=== PATIENT | female | born 1955 | race Caucasian/White ===

== ENCOUNTER → 2016-09-16 | Outpatient (CLI) | payer MEDICARE ==
[~2016-09-16] MED LIST: CYAN10002 IM; DRON400T PO; LISI20TA3 PO; OMEP40CA PO; PRVHFAIN INH; SPACMIS19; VENL-271 PO; [UNRECOGNIZED DRUG - CODE] PO
[2016-09-16 16:38] LABS: BASO % 0.3 %; BASO ABS # 0.03 K/uL (0-0.2); COMPLETE YES; EOS % 0.3 %; HEMATOCRIT 42.6 % (37-47); IG% 0.3 %; LYMPH ABS # 2.26 K/uL (1.2-3.4); MEAN CELL VOLUME 89.3 fL (80-100); MEAN CORPUSCULAR HEMOGLOBIN 29.4 pg (25-34); MEAN CORPUSCULAR HGB CONC 32.9 g/dl (32-36); MONO % 7.4 %; NEUT % 68.7 %; PLATELET COUNT 361 K/uL (130-400); RED BLOOD COUNT 4.77 M/uL (4.2-5.4); WHITE BLOOD COUNT 9.82 K/uL (4.8-10.8)
[2016-09-16 16:50] LABS: URINE APPEARANCE CLEAR (CLEAR); URINE BILIRUBIN NEG (NEG); URINE COLOR YELLOW; URINE NITRITE NEG (NEG); URINE PH 5.5 (4.5-7.5); URINE SPECIFIC GRAVITY 1.009 (1.000-1.030); UROBILINOGEN NEG (NEG); ZZUR CULT IF INDIC CLEAN CATCH NO
[2016-09-16 16:52] LABS: MANUAL MICROSCOPIC REQUIRED? NO; REVIEW REQ? NO
[2016-09-16 17:10] LABS: URINE PROTIEN/CREAT RATIO 7.3 (0-0.2); URINE TOTAL PROTEIN 174.2 mg/dl (0-11.9)
[2016-09-16 17:30] LABS: BLOOD UREA NITROGEN 21 mg/dl (7-18); BUN/CREATININE RATIO 19.2 (10-20); CALCIUM 8.5 mg/dl (8.5-10.1); CARBON DIOXIDE 25 mmol/L (21-32); CHLORIDE 109 mmol/L (98-107); GLUCOSE 80 mg/dl (70-99); MAGNESIUM 2.2 mg/dl (1.8-2.4); POTASSIUM 4.4 mmol/L (3.5-5.1); SODIUM 142 mmol/L (136-145)
[2016-09-16 17:35] LABS: FERRITIN 13.5 ng/ml (8.0-388.0); PHOSPHORUS 3.8 mg/dl (2.5-4.9); TOTAL IRON BINDING CAPACITY 334 mcg/dl (250-450)
--- NOTE | 2016-09-20 14:03 | CODING QUERY MEDICAL NECESSITY ---
SUPPORTING DIAGNOSIS NEEDED Dr. Bonilla, A supporting diagnosis is required for the test/procedure performed on this patient in order for us to be reimbursed by the patient's insurance. Please provide a supporting diagnosis for the following test/procedure listed below next to the test name along with your signature. *If there is no additional diagnosis for this patient that would support the following test/procedure please document that below next to the test/procedure. Test(s)/Procedure(s) that require a supporting diagnosis: * ([id number]) VITAMIN D ASSAY DIAGNOSIS: * ([id number]) B12 VITAMIN LEVEL DIAGNOSIS: DATE OF SERVICE: 09/16/16 Provider Signature: Date: Thank you Ke [facility] Once completed, please kindly fax back to [phone] For questions please call [phone]
== END | disposition home or self-care (01) ==
LOC: C.LAB1850 15:44
PROVIDERS: ATTEND Internal Medicine Nephrology
DX: D64.9 Anemia, unspecified (principal); E55.9 Vitamin D deficiency, unspecified

== ENCOUNTER → 2017-04-19 | Outpatient (CLI) | payer MEDICARE ==
[~2017-04-19] MED LIST changes: +GADAVIST IV PRN
--- NOTE | 2017-04-19 15:35 | DIAGNOSTIC IMAGING REPORT ---
ABDOMEN COMBO CLINICAL HISTORY: Renal cell carcinoma. COMPARISON STUDY: CT dated 04/19/2016. TECHNIQUE: MRI of the abdomen is performed transverse T1 and T2-weighted sequences in the axial and coronal planes. Contrast enhanced sequences were acquired following the IV administration of gadolinium. FINDINGS: Lower chest: No pleural effusion is identified. The heart is normal in size. Liver: The liver is normal in size, contour, and signal intensity. No intrahepatic biliary ductal dilatation is seen. The hepatic veins and portal veins are patent. Gallbladder: Postcholecystectomy. Spleen: Normal in size and signal intensity. Pancreas: Unremarkable. Adrenal glands: Unremarkable. Kidneys: Status post left nephrectomy. Several sub-5 mm right renal cyst. No evidence for renal hydronephrosis. Bowel: Visualized portions of the small bowel and colon show no evidence of obstruction. Peritoneum: There is no abdominal ascites. Lymphadenopathy: None. Skeletal structures: Visualized skeletal structures times are normal marrow signal intensity. IMPRESSION: Negative study post left nephrectomy. No change from the patient's prior CT study. Operative changes consistent with a prior gastric bypass, chronic biliary ductal prominence, and prior cholecystectomy. The above report was generated using voice recognition software. It may contain grammatical, syntax or spelling errors. Electronically signed by: Jose Klein M.D. 04/19/2017 3:33 PM Dictated Date/Time: 04/19/2017 3:28 PM
== END | disposition home or self-care (01) ==
LOC: C.MRI 14:24
PROVIDERS: ATTEND Urology
DX: N28.89 Other specified disorders of kidney and ureter (principal); N39.0 Urinary tract infection, site not specified

== ENCOUNTER → 2017-12-13 | Outpatient (CLI) | payer MEDICARE ==
[~2017-12-13] MED LIST changes: -GADAVIST IV PRN; +OPTIRAY 320 IV PRN
--- NOTE | 2017-12-13 15:26 | DIAGNOSTIC IMAGING REPORT ---
CT SCAN OF THE CHEST WITH IV CONTRAST CLINICAL HISTORY: Renal cell carcinoma. Pulmonary nodule. COMPARISON STUDY: Chest CT dated 09/16/2015. TECHNIQUE: Following the IV administration of 70 cc of Optiray 320, CT scan of the thorax was performed from the thoracic inlet to the upper abdomen. Images are reviewed in the axial, sagittal, and coronal planes. IV contrast was administered without complication. A dose lowering technique was utilized adhering to the principles of ALARA. CT DOSE: 294.68 mGy.cm FINDINGS: Thyroid: Imaged portions of the thyroid gland are normal in size and attenuation. Thoracic aorta: There is atherosclerotic calcification of the thoracic aorta, which is normal in caliber and demonstrates standard 3-vessel arch anatomy. No dissection is seen. Pulmonary vasculature: The pulmonary trunk is dilated, measuring 4.3 cm in transverse diameter. This indicates pulmonary artery hypertension. There are no filling defects identified in the central pulmonary vessels to indicate pulmonary embolus. Note that this examination was not protocoled for evaluation of the pulmonary arteries. Heart: The heart is normal in size and there is trace pericardial effusion. The coronary arteries are densely calcified. Lungs and pleural spaces: Moderate emphysematous change is identified. No airspace consolidation or pleural effusion is identified. The trachea and central airways are patent. There is a millimeters spiculated nodule in the right upper lobe seen on image #80. A 7 mm pleural-based nodule in the right middle lobe is seen along the minor fissure on image #169. A 3 mm pleural-based nodule in the right upper lobe as seen on image #111. These nodules are similar in appearance to 09/16/2015 examination. Mild diffuse peribronchial thickening is observed. Mediastinum: There are mildly enlarged mediastinal nodes. A precarinal node on image #119 measures 11 mm in short axis. Prevascular nodes also measure up to 11 mm short axis. Clarissa: Mildly enlarged hilar lymph nodes measure up to 13 mm in short axis. Axillae: There is no axillary lymphadenopathy. Upper abdomen: The left kidney is surgically absent. The patient is status post cholecystectomy. Intrahepatic biliary ductal dilatation is observed. A subcentimeter hypodensity in the left hepatic lobe likely represents a cyst but is too small for definitive characterization. Nodularity of the left adrenal gland is unchanged dating back to 2016. Postoperative changes are consistent with a Alondra-en-Y gastric bypass procedure. Skeletal structures: The skeletal structures are osteopenic. No lytic or blastic bony lesions are seen. There are healed right-sided rib fractures. IMPRESSION: 1. Emphysema. 2. There is no airspace consolidation or pleural effusion. Mild diffuse peribronchial thickening suggests reactive airway disease. 3. There is an 8 mm spiculated nodule in the right upper lobe. Although morphologically concerning, this has not appreciably changed from 09/16/2015 and is pathologically indeterminant. Pulmonology follow-up is recommended. At a minimum, continued 3-[address] follow-up is recommended. 4. Additional pleural-based nodules are also unchanged and of low suspicion. 5. Mildly enlarged mediastinal and hilar lymph nodes are nonspecific and not significantly changed from 09/16/2015. 6. Additional findings as above. Electronically signed by: Jesus Escobar M.D. 12/13/2017 3:25 PM Dictated Date/Time: 12/13/2017 3:12 PM
== END | disposition home or self-care (01) ==
LOC: C.CTS 14:55
PROVIDERS: ATTEND Urology
DX: C64.9 Malignant neoplasm of unspecified kidney, except renal pelvis (principal); R91.1 Solitary pulmonary nodule

== ENCOUNTER 2019-04-03 18:05 | Inpatient (IN) ==
[2019-04-03] MEDS ORDERED: SODIUM CHLORIDE 0.9% 500 ML IV ONE (18:20)
[2019-04-03 19:09] LABS: Appearance Urine Clear (Clear); Bacteria Urine Automated Negative (Negative); Bilirubin Urine Negative (Negative); Blood Urine Negative (Negative); Cast Urine Automated 0 /lpf (0-5); Color Urine Yellow; Glucose Urine UA Negative (Negative); Ketones Urine Negative (Negative); Leukocyte Esterase Urine Negative (Negative); Nitrite Urine Negative (Negative); Protein Urine 3+ (Negative); RBC Urine Automated 0-4 /hpf (0-4); Specific Gravity Urine 1.007 (1.000-1.030); Urobilinogen Urine Negative (Negative); pH Urine 6.5 (4.5-7.5)
[2019-04-03] MEDS ORDERED: methylPREDNISolone 125 MG/2 ML VIAL IV STA (19:32)
[2019-04-03] MEDS ORDERED: ALBUT/IPRATROP 3MG/0.5MG NEB 3 ML VIAL NEB STA (19:32)
[2019-04-03 19:35] LABS: Basophils # (auto) 0.02 K/uL (0-0.2); Basophils % (auto) 0.2 %; Eosinophils # (auto) 0.01 K/uL (0-0.5); Eosinophils % (auto) 0.1 %; Hematocrit (blood only) 37.2 % (37-47); Hemoglobin 12.1 g/dL (12.0-16.0); Immature Granulocytes # (auto) 0.02 K/uL (0.00-0.02); Immature Granulocytes % (auto) 0.2 %; Lymphocytes # (auto) 2.92 K/uL (1.2-3.4); Lymphocytes % (auto) 27.9 %; Mean Corpuscular Hemoglobin 30.3 pg (25-34); Mean Corpuscular Hgb Conc 32.5 g/dL (32-36); Mean Platelet Volume 8.9 fL (7.4-10.4); Monocytes # (auto) 0.74 K/uL (0.11-0.59); Monocytes % (auto) 7.1 %; Neutrophils # (auto) 6.76 K/uL (1.4-6.5); Neutrophils % (auto) 64.5 %; Platelet Count 306 K/uL (130-400); RDW Coefficient of Variation 13.6 % (11.5-14.5); RDW Standard Deviation 46.5 fL (36.4-46.3); White Blood Count 10.47 K/uL (4.8-10.8)
[2019-04-03 19:44] LABS: INR 0.9 (0.9-1.1); Prothrombin Time 9.3 Seconds (9.0-12.0)
--- NOTE | 2019-04-03 19:50 | CT Scan Report ---
CT abd pelvis wo con CT DOSE: 454.19 mGy.cm HISTORY: Pain weakness, worsening renal failure, solitary kidney TECHNIQUE: Multiaxial CT images of the abdomen and pelvis were performed without contrast. A dose lo wering technique was utilized adhering to the principles of ALARA. COMPARISON STUDY: 04/19/2016 FINDINGS: Lung bases are clear. The liver spleen and pancreas are unremarkable. Prior gastric bypass procedure which has been previously described. Prior left of rectum. Right kidne y demonstrates several vascular calcifications. No evidence for nephrocalcinosis or hydronephrosis. Bowel pattern is considered nonobstructive. No significant abdominal or pelvic adenopathy. Atheroscle rotic change of the abdominal and pelvic arterial vasculature. Stable postoperative changes of the lumbosacral spine. IMPRESSION: 1. Stable changes of a prior left nephrectomy and gastric bypass type procedure.. 2. Mild stable hepatomegaly. 3. Slight biliary ductal prominence which is unchanged from the prior study and felt to be chronic. 4. No acute or interval process. The above report was generated using voice recognition software. It may contain grammatical, syntax or spelling errors. Electronically signed by: Jose Klein M.D. 04/03/2019 7:49 PM
--- NOTE | 2019-04-03 19:51 | XRay Report ---
XR chest 1V portable CLINICAL HISTORY: Chest Pain dyspnea COMPARISON STUDY: 09/16/2015 FINDINGS: Mild chronic emphysematous and interstitial change. No focal infiltrate. No evidence for pn eumothorax. Diaphragms are smooth. IMPRESSION: Chronic and emphysematous change. No acute process. The above report was generated using voice recognition software. It may contain grammatical, syntax or spelling errors. Electronically signed by: Jose Klein M.D. 04/03/2019 7:50 PM
[2019-04-03 19:52] LABS: Alanine Aminotransferase 17 U/L (12-78); Albumin Level 2.8 gm/dl (3.4-5.0); Aspartate Aminotransferase 10 U/L (15-37); BUN Creatinine Ratio 18.5 (10-20); Blood Urea Nitrogen 31 mg/dl (7-18); Calcium 8.2 mg/dl (8.5-10.1); Carbon Dioxide 22 mmol/L (21-32); Chloride 111 mmol/L (98-107); Creatinine Clr Calc Pharmacy 37.5 ml/min; Est GFR (African American) 37.6; Est GFR (Non-African American) 32.5; Glucose 97 mg/dl (70-99); Lipase 111 U/L (73-393); Magnesium 2.2 mg/dl (1.8-2.4); Potassium 4.3 mmol/L (3.5-5.1); Sodium 140 mmol/L (136-145)
[2019-04-03 20:03] LABS: Albumin Globulin Ratio 0.7 (0.9-2); Alkaline Phosphatase 73 U/L (45-117); Bilirubin,Total 0.2 mg/dl (0.2-1); Globulin 3.8 gm/dl (2.5-4.0); NT Pro B Type Natriuretic Pept 5670 pg/ml (0-900); Phosphorus 3.5 mg/dl (2.5-4.9); Total Protein 6.6 gm/dl (6.4-8.2); Troponin I < 0.015 ng/ml (0-0.045)
[2019-04-03] MEDS ORDERED: LORazepam 1 MG TAB SL STA (20:43)
[2019-04-03] MEDS ORDERED: PROCHLORPERAZINE 1 ML IV ONE (20:43)
[2019-04-03] MEDS ORDERED: carvediloL 12.5 MG TAB PO ONE (21:04)
[2019-04-03] MEDS ORDERED: dilTIAZem HCL 30 MG TAB PO STA (21:04)
[2019-04-03] MEDS ORDERED: NICOTINE 21 MG/24 HR TDSY TD ONE (21:18)
--- NOTE | 2019-04-03 21:53 | History & Physical Report ---
Date of Service April 03, 2019 Assessment & Plan (1) Hypertensive urgency: Patient with markedly elevated blood pressure on arrival to the ER, 245/126. She reports compliance with medications and fairly good control of blood pressure at home. No clear inciting event. Patient complaining only of head fullness and occasional "whooshing" in her ears. Otherwise denies chest pain, numbness, tingling, weakness. BUN and creatinine = 31 and 1.66, respectively, EKG with no acute ischemic changes, troponin x1 = negative. Per review of notes patient seems to have a baseline creatinine of approximately 1.6. She is complaining of shortness of breath ongoing since January and she feels this has not acutely worsened. Concern for ongoing renal damage from poorly controlled hypertension and patient with solitary kidney. -Admit to PCU for close blood pressure monitoring -Check renal artery duplex. Patient with solitary kidney, accelerated hypertension -Administer evening carvedilol and diltiazem now - blood pressure improved to 206/70. Goal to slowly correct, MAP presently 115 -Continue Carvedilol. Increase to 25mg po BID to start with AM dose -Continue Lisinopril 40mg po daily -Continue Diltiazem 180mg po daily -Hydralazine 25mg po QID PRN SBP > 200 -Eventual blood pressure goal 130/80 -Hold Venlafaxine for now - doubt that this medication at this low dosage is contributing to her elevated BP Present on Admission?: Yes (2) Stage III chronic kidney disease: Patient with history of renal cell carcinoma status post left nephrectomy performed in 2016. She follows with Dr. Jacinto Bonilla. She has stable CKD stage III, baseline creatinine of 1.6, GFR of 30-35. Also with proteinuria mentioned in prior nephrology notes. Patient's blood work obtained on 04/01/2019 raised some concern for worsening renal function. Creatinine at that time was 2.2 and BUN was 36. At this point patient reports normal urine output without dysuria/hematuria/frothy urine. Her BUN and creatinine seem to be approaching her baseline. She presents today with hypertensive urgency which certainly could be affecting her renal function. -Avoid nephrotoxic agents -Renal dosing were appropriate -Monitor intake and output, BUN/creatinine/electrolytes -Obtain renal artery duplex in the morning. Present on Admission?: Yes (3) Proteinuria: Chronic. -Continue Lisinopril Present on Admission?: Yes (4) Arteriosclerotic coronary artery disease: Patient with coronary artery disease s/p LYNDSAY to OM-1 performed on 02/11/19. Presently denies CP. -Continue ASA, Plavix, Carvedilol at increased dosage as above, Lisinopril, Atorvastatin (5) Anemia: Chronic. Stable. No active bleeding -Continue to monitor Present on Admission?: Yes (6) Paroxysmal atrial fibrillation: Presently in NSR. Patient does admit to more frequent palpitations -COntinue Diltiazem -Telemetry monitoring F/E/N - Heart healthy diet. Monitor electrolytes Ppx - Continue home Nexium Code - DNR/DNI per discussion with patient Dispo - PCU History of Present Illness Chief Complaint: Feeling ill Primary Care Provider: Ankush Gambino is a 63-year-old female with multiple medical problems presenting with feeling ill over the last week. She has history of CAD s/p LYNDSAY placed to the OM-1 on 02/11/2019 on aspirin and Plavix, history of renal cell carcinoma status post left nephrectomy in 2015, hypertension, CKD stage III, ongoing proteinuria. Patient states that she was experiencing some subjective fevers and chills last week as well as some facial pain, sinus congestion. She was seen at urgent care on 04/01/2019 and was given a prescription for Augmentin to treat possible sinusitis. She had blood work drawn on 04/01. Yesterday the physician from [facility] an acute care hospital contacted her and stated that they were quite concerned about her renal decline and she was instructed to come to the ER. Labs from that time show a BUN of 36 and creatinine of 2.2 Upon arrival patient found to be afebrile, markedly hypertensive at 226/100. She reports compliance with her medications. Denies stimulant use or [id number] cold medications. She thinks that her blood pressure has been up over the last 3 days she has felt pressure in her head as well as a "whooshing sound in her ears". She also complains of frequent palpitations over the last 3 days associated with shortness of breath. She states she has no energy and becomes markedly dyspneic with exertion, occasional dizziness. She also feels that her feet have become swollen and thinks she has mild orthopnea. She denies chest pain, weight gain, abdominal pain, nausea, vomiting, diarrhea, constipation. She reports slightly less urine output yesterday with normal urine output today. Denies dysuria/frequency/urgency/hematuria/foamy urine. Denies flank pain. Bedside ultrasound was performed by the ER attending and reports that her IVC was fairly collapsible. Patient follows with nephrology, Dr. Bonilla. Last seen on 02/22/2019. Reviewed that note reveals patient with baseline creatinine of approximately 1.6 which has been stable. Also with fairly well-controlled blood pressure, goal of 13 0/80, patient with CAD/CKD/solitary kidney. ER course: Albuterol 3 mL neb, Solu-Medrol 125 mg IV, normal saline x500 mL, prochlorperazine, Lorazepam, carvedilol 12.5 mg, diltiazem 90 mg, nicotine 21 mg patch Allergies Allergy/AdvReac Type Severity Reaction Status Date / Time lactose Allergy Unknown GI UPSET Verified 02/22/19 14:40 levofloxacin [From Levaquin] Allergy Unknown Verified 04/03/19 22:57 metformin Allergy Unknown Verified 04/03/19 22:57 codeine AdvReac Unknown N&V Verified 02/22/19 14:40 Home Medications Home Medications Medication Instructions Recorded Confirmed Type ergocalciferol (vitamin D2) 50,000 50,000 units PO WEEKLY #12 cap 01/22/19 04/03/19 History unit capsule esomeprazole magnesium 40 mg 40 mg PO DAILY #30 cap 01/22/19 04/03/19 History capsule,delayed release lisinopril 40 mg tablet 40 mg PO DAILY #90 tab 01/22/19 04/03/19 History venlafaxine 37.5 mg 37.5 mg PO DAILY cap 01/22/19 04/03/19 History capsule,extended release 24 hr aspirin 81 mg tablet,delayed 81 mg PO DAILY 02/22/19 04/03/19 History release carvedilol 12.5 mg tablet 12.5 mg PO BID #60 tab 02/22/19 04/03/19 Rx clopidogrel 75 mg tablet 75 mg PO DAILY #30 tab 02/22/19 04/03/19 Rx furosemide 20 mg tablet 20 mg PO DAILY 02/22/19 04/03/19 History amoxicillin 875 mg PO BID 04/03/19 04/03/19 History diltiazem HCl [Cartia XT] 180 mg PO DAILY 04/03/19 04/03/19 History docusate sodium [Col-Rite] 100 mg PO BID 04/03/19 04/03/19 History lactobacillus comb no.10 40 mmu cells PO DAILY 04/03/19 04/03/19 History [Probiotic] potassium chloride 10 meq PO 3XWK 04/03/19 04/03/19 History Past Med/Surg History Medical History (Updated 04/03/19 @ 23:18 by Ilana Bradley DO) Acquired solitary kidney Anemia Arteriosclerotic coronary artery disease Hypertension Paroxysmal atrial fibrillation Proteinuria Renal cell carcinoma Stage III chronic kidney disease Surgical History (Updated 02/22/19 @ 16:31 by Jacinto Bonilla DO) Previous back surgery S/P appendectomy S/P gastric bypass S/P wrist surgery Social History (Updated 04/03/19 @ 21:59 by Ilana Bradley DO) Preferred Language: Czech Current Living Situation: Alone Feels Safe at Home: Yes Smoking Status: Current every day smoker Cigarettes Per Day: 40 ; Second Hand Exposure: Yes ; Hx Alcohol Use: Yes Alcohol Intake Frequency: Holidays/Special Occasions Hx Substance Use: No Review of Systems Review of Systems: All systems reviewed & are unremarkable except as noted in HPI & below Physical Exam Physical Exam: General: patient resting comfortably, anxious in appearance, NAD, non-toxic in appearance, AA&O x 4 Skin: warm, dry, intact, no rashes or lesions HEENT: NC/AT, PERRL, EOMI, anicteric sclera, conjunctiva without injection, external ear normal to inspection and nontender, nares patent, moist mucus membranes, dentition intact, no oropharyngeal lesions, neck supple, trachea midline, no LAD, no thyromegaly, no JVD Heart: +S1/S2, regular, significant respiratory variation in rate, no m/r/g Lungs: equal air entry bilaterally, no rales/rhonchi/wheezes Abd: +BS, soft, NT/ND, no masses/organomegaly/ascites Ext: warm, 2+ pulses in UE/LE bilaterally, no clubbing/cyanosis or edema Neuro: nonfocal, patient AA&O x 4, speech intact, no facial droop, moving all extremities on command with equal strength 5/5 Results & Data Vital Signs (Past 12 Hours) Vital Signs Temp Pulse Pulse Resp BP Pulse Ox 04/03/19 21:01 74 19 245/102 H 04/03/19 21:00 76 26 H 04/03/19 20:37 76 20 249/110 H 96 04/03/19 20:31 73 20 04/03/19 20:30 72 20 235/111 H 04/03/19 20:01 67 14 214/98 H 99 04/03/19 20:00 66 13 100 04/03/19 19:55 72 14 95 04/03/19 19:49 70 12 04/03/19 19:22 70 17 95 04/03/19 19:21 68 19 206/92 H 95 04/03/19 18:45 94 04/03/19 18:39 71 15 245/126 H 95 04/03/19 18:10 36.6 C 78 18 226/100 H 97 Laboratory Results Lab Results 04/03/19 04/03/19 04/03/19 Range/Units 18:55 19:17 19:17 WBC 10.47 (4.8-10.8) K/uL RBC 4.00 L (4.2-5.4) M/uL Hgb 12.1 (12.0-16.0) g/dL Hct 37.2 (37-47) % MCV 93.0 (80-100) fL MCH 30.3 (25-34) pg MCHC 32.5 (32-36) g/dL RDW Std Deviation 46.5 H (36.4-46.3) fL RDW Coeff of [place] 13.6 (11.5-14.5) % Plt Count 306 (130-400) K/uL MPV 8.9 (7.4-10.4) fL Immature Gran % (Auto) 0.2 % Neut % (Auto) 64.5 % Lymph % (Auto) 27.9 % [place] % (Auto) 7.1 % Eos % (Auto) 0.1 % Baso % (Auto) 0.2 % Immature Gran # (Auto) 0.02 (0.00-0.02) K/uL Neut # (Auto) 6.76 H (1.4-6.5) K/uL Lymph # (Auto) 2.92 (1.2-3.4) K/uL [place] # (Auto) 0.74 H (0.11-0.59) K/uL Eos # (Auto) 0.01 (0-0.5) K/uL Baso # (Auto) 0.02 (0-0.2) K/uL PT (9.0-12.0) Seconds INR (0.9-1.1) Sodium 140 (136-145) mmol/L Potassium 4.3 (3.5-5.1) mmol/L Chloride 111 H (98-107) mmol/L Carbon Dioxide 22 (21-32) mmol/L Anion Gap 8.0 (3-11) BUN 31 H (7-18) mg/dl Creatinine 1.66 H (0.6-1.2) mg/dl Est Cr Clr Drug Dosing 37.5 ml/min Est GFR ( Amer) 37.6 Est GFR (Non-Af Amer) 32.5 BUN/Creatinine Ratio 18.5 (10-20) Glucose 97 (70-99) mg/dl Lactate (0.4-2.0) mmol/L Calcium 8.2 L (8.5-10.1) mg/dl Phosphorus 3.5 (2.5-4.9) mg/dl Magnesium 2.2 (1.8-2.4) mg/dl Total Bilirubin 0.2 (0.2-1) mg/dl AST 10 L (15-37) U/L ALT 17 (12-78) U/L Alkaline Phosphatase 73 (45-117) U/L Troponin I < 0.015 (0-0.045) ng/ml NT-Pro-B Natriuret Pep 5670 H (0-900) pg/ml Total Protein 6.6 (6.4-8.2) gm/dl Albumin 2.8 L (3.4-5.0) gm/dl Globulin 3.8 (2.5-4.0) gm/dl Albumin/Globulin Ratio 0.7 L (0.9-2) Lipase 111 (73-393) U/L TSH 2.860 (0.300-4.500) uIu/ml Urine Color Yellow Urine Appearance Clear (Clear) Urine pH 6.5 (4.5-7.5) Ur Specific [place] 1.007 (1.000-1.030) Urine Protein 3+ H (Negative) Urine Glucose (UA) Negative (Negative) Urine Ketones Negative (Negative) Urine Blood Negative (Negative) Urine Nitrite Negative (Negative) Urine Bilirubin Negative (Negative) Urine Urobilinogen Negative (Negative) Ur Leukocyte Esterase Negative (Negative) Urine WBC (Auto) 1-5 (0-5) /hpf Urine RBC (Auto) 0-4 (0-4) /hpf U Hyaline Cast (Auto) 0 (0-5) /lpf U Epithel Cells (Auto) 10-20 H (0-5) /lpf Urine Bacteria (Auto) Negative (Negative) 04/03/19 04/03/19 Range/Units 19:17 19:17 WBC (4.8-10.8) K/uL RBC (4.2-5.4) M/uL Hgb (12.0-16.0) g/dL Hct (37-47) % MCV (80-100) fL MCH (25-34) pg MCHC (32-36) g/dL RDW Std Deviation (36.4-46.3) fL RDW Coeff of [place] (11.5-14.5) % Plt Count (130-400) K/uL MPV (7.4-10.4) fL Immature Gran % (Auto) % Neut % (Auto) % Lymph % (Auto) % [place] % (Auto) % Eos % (Auto) % Baso % (Auto) % Immature Gran # (Auto) (0.00-0.02) K/uL Neut # (Auto) (1.4-6.5) K/uL Lymph # (Auto) (1.2-3.4) K/uL [place] # (Auto) (0.11-0.59) K/uL Eos # (Auto) (0-0.5) K/uL Baso # (Auto) (0-0.2) K/uL PT 9.3 (9.0-12.0) Seconds INR 0.9 (0.9-1.1) Sodium (136-145) mmol/L Potassium (3.5-5.1) mmol/L Chloride (98-107) mmol/L Carbon Dioxide (21-32) mmol/L Anion Gap (3-11) BUN (7-18) mg/dl Creatinine (0.6-1.2) mg/dl Est Cr Clr Drug Dosing ml/min Est GFR ( Amer) Est GFR (Non-Af Amer) BUN/Creatinine Ratio (10-20) Glucose (70-99) mg/dl Lactate 0.8 (0.4-2.0) mmol/L Calcium (8.5-10.1) mg/dl Phosphorus (2.5-4.9) mg/dl Magnesium (1.8-2.4) mg/dl Total Bilirubin (0.2-1) mg/dl AST (15-37) U/L ALT (12-78) U/L Alkaline Phosphatase (45-117) U/L Troponin I (0-0.045) ng/ml NT-Pro-B Natriuret Pep (0-900) pg/ml Total Protein (6.4-8.2) gm/dl Albumin (3.4-5.0) gm/dl Globulin (2.5-4.0) gm/dl Albumin/Globulin Ratio (0.9-2) Lipase (73-393) U/L TSH (0.300-4.500) uIu/ml Urine Color Urine Appearance (Clear) Urine pH (4.5-7.5) Ur Specific [place] (1.000-1.030) Urine Protein (Negative) Urine Glucose (UA) (Negative) Urine Ketones (Negative) Urine Blood (Negative) Urine Nitrite (Negative) Urine Bilirubin (Negative) Urine Urobilinogen (Negative) Ur Leukocyte Esterase (Negative) Urine WBC (Auto) (0-5) /hpf Urine RBC (Auto) (0-4) /hpf U Hyaline Cast (Auto) (0-5) /lpf U Epithel Cells (Auto) (0-5) /lpf Urine Bacteria (Auto) (Negative) Diagnostic Findings CT abd pelvis wo con CT DOSE: 454.19 mGy.cm HISTORY: Pain weakness, worsening renal failure, solitary kidney TECHNIQUE: Multiaxial CT images of the abdomen and pelvis were performed without contrast. A dose lowering technique was utilized adhering to the principles of ALARA. COMPARISON STUDY: 04/19/2016 FINDINGS: Lung bases are clear. The liver spleen and pancreas are unremarkable. Prior gastric bypass procedure which has been previously described. Prior left of rectum. Right kidney demonstrates several vascular calcifications. No evidence for nephrocalcinosis or hydronephrosis. Bowel pattern is considered nonobstructive. No significant abdominal or pelvic adenopathy. Atherosclerotic change of the abdominal and pelvic arterial vasculature. Stable postoperative changes of the lumbosacral spine. IMPRESSION: 1. Stable changes of a prior left nephrectomy and gastric bypass type procedure.. 2. Mild stable hepatomegaly. 3. Slight biliary ductal prominence which is unchanged from the prior study and felt to be chronic. 4. No acute or interval process. The above report was generated using voice recognition software. It may contain grammatical, syntax or spelling errors. Electronically signed by: Jose Klein M.D. 04/03/2019 7:49 PM Dictated: 04/03/191942 Transcribed: 04/03/191942 --- XR chest 1V portable CLINICAL HISTORY: Chest Pain dyspnea COMPARISON STUDY: 09/16/2015 FINDINGS: Mild chronic emphysematous and interstitial change. No focal infiltrate. No evidence for pneumothorax. Diaphragms are smooth. IMPRESSION: Chronic and emphysematous change. No acute process. The above report was generated using voice recognition software. It may contain grammatical, syntax or spelling errors. Electronically signed by: Jose Klein M.D. 04/03/2019 7:50 PM Dictated: 04/03/191948 Transcribed: 04/03/191948 ECG Additional Comments: NSR at 68bpm, normal axis, AB=596, QRS=96, GYg=662, no acute ischemic changes Code Status & VTE Plan Code Status DNR VTE Prophylaxis Plan VTE Prophylaxis will be ordered: Yes PG Care Time/CCT Total # of Minutes Spent Total Time Spent with Patient: Total time spent is greater than 50% in coordina tion of care (as documented) at patient's floor/unit and/or counseling patient: (1) Proteinuria Proteinuria type: unspecified Qualified Code(s): R80.9 - Proteinuria, unspecified
[2019-04-04] MEDS ORDERED: ONDANSETRON INJ 2 MG/ML 2 ML VIAL IV PRN (00:06)
--- NOTE | 2019-04-04 01:04 | Emergency Department Note ---
Entered by Kaylah Hanna acting as a scribe for History of Present Illness General Chief complaint: Abnormal Labs/Diagnostic Testing Stated complaint: REF. FOR KIDNEY FUNCTION, FLUID Time Seen by Provider: 04/03/19 18:17 History of Present Illness Provider complaint: abnormal labs Onset (ago): day(s) 2 Pain Consistency: + other (episode) Quality: + other (abnormal labs) Relieved By: + none Associated symptoms: + cough (worsening), + headaches, + shortness of breath and + other (full body chills, dizzy, heart and kidney enzymes are abnormal, recent weight gain, feet swelling, infrequent urination, nausea) The patient is a 63 year old female who presents to the ED with complaints of an episode of abnormal lab work from 2 days ago. The patient states that she was supposed to have an appointment with her kidney doctor yesterday but she had to cancel because she had full body chills, headache, dizziness and worsening cough. The patient states that she got a call saying her heart and kidney enzymes are abnormal and she was told to seek medical care. The patient states that she has had recent weight gain, feet swelling and infrequent urination lately. The patient notes that she has also been feeling more nauseated and short of breath. The patient states that nothing is relieving her of these symptoms. The patient notes that she had her left kidney removed a few months a go secondary to kidney cancer. Home Medications Home Medications Medication Instructions Recorded Confirmed Type ergocalciferol (vitamin D2) 50,000 50,000 units PO WEEKLY #12 cap 01/22/19 04/03/19 History unit capsule esomeprazole magnesium 40 mg 40 mg PO DAILY #30 cap 01/22/19 04/03/19 History capsule,delayed release lisinopril 40 mg tablet 40 mg PO DAILY #90 tab 01/22/19 04/03/19 History venlafaxine 37.5 mg 37.5 mg PO DAILY cap 01/22/19 04/03/19 History capsule,extended release 24 hr aspirin 81 mg tablet,delayed 81 mg PO DAILY 02/22/19 04/03/19 History release carvedilol 12.5 mg tablet 12.5 mg PO BID #60 tab 02/22/19 04/03/19 Rx clopidogrel 75 mg tablet 75 mg PO DAILY #30 tab 02/22/19 04/03/19 Rx furosemide 20 mg tablet 20 mg PO DAILY 02/22/19 04/03/19 History amoxicillin 875 mg PO BID 04/03/19 04/03/19 History diltiazem HCl [Cartia XT] 180 mg PO DAILY 04/03/19 04/03/19 History docusate sodium [Col-Rite] 100 mg PO BID 04/03/19 04/03/19 History lactobacillus comb no.10 40 mmu cells PO DAILY 04/03/19 04/03/19 History [Probiotic] potassium chloride 10 meq PO 3XWK 04/03/19 04/03/19 History Allergies Allergy/AdvReac Type Severity Reaction Status Date / Time lactose Allergy Unknown GI UPSET Verified 02/22/19 14:40 levofloxacin [From Levaquin] Allergy Unknown Verified 04/03/19 22:57 metformin Allergy Unknown Verified 04/03/19 22:57 codeine AdvReac Unknown N&V Verified 02/22/19 14:40 Past Med/Surg History Medical History Acquired solitary kidney Anemia Arteriosclerotic coronary artery disease Hypertension Paroxysmal atrial fibrillation Proteinuria Renal cell carcinoma Stage III chronic kidney disease Surgical History Previous back surgery S/P appendectomy S/P gastric bypass S/P wrist surgery Social History Preferred Language: [place] [employer] Required: No Beliefs That Will Affect Care: None Current Living Situation: Alone Feels Safe at Home: Yes Smoking Status: Current every day smoker Tobacco Type: cigarettes ; Cigarettes Per Day: 40 ; Second Hand Exposure: No ; Hx Alcohol Use: Yes Alcohol Intake Frequency: Holidays/Special Occasions Hx Substance Use: No Review of Systems See HPI for pertinent positives & negatives. and A total of 10 systems reviewed and were otherwise negative Physical Exam Vital Signs Vital Signs - 24 hr 04/03/19 18:10 04/03/19 18:39 04/03/19 18:45 Temperature 36.6 C Temperature Source Oral Pulse Rate 78 71 Pulse Rate [Right Finger] Pulse Rate from SpO2 Sensor 72 Respiratory Rate 18 15 Respiratory Effort / Characteristics Blood Pressure 226/100 H 245/126 H Blood Pressure Mean 142 167 Pulse Oximetry 97 95 94 Oxygen Delivery Method Room Air Room Air Sepsis Recent Fever Within 48 Hours No Sepsis New/Unexplained Change in Mental Status No Sepsis Action Taken by Nursing No Action Required 04/03/19 19:21 04/03/19 19:22 04/03/19 19:49 Temperature Temperature Source Pulse Rate 68 70 70 Pulse Rate [Right Finger] Pulse Rate from SpO2 Sensor 68 69 Respiratory Rate 19 17 12 Respiratory Effort / Characteristics Blood Pressure 206/92 H Blood Pressure Mean 129 Pulse Oximetry 95 95 Oxygen Delivery Method Room Air Sepsis Recent Fever Within 48 Hours Sepsis New/Unexplained Change in Mental Status Sepsis Action Taken by Nursing 04/03/19 19:55 04/03/19 20:00 04/03/19 20:01 Temperature Temperature Source Pulse Rate 66 67 Pulse Rate [Right Finger] 72 Pulse Rate from SpO2 Sensor 66 66 Respiratory Rate 14 13 14 Respiratory Effort / Characteristics Non-Labored Spontaneous Blood Pressure 214/98 H Blood Pressure Mean 141 Pulse Oximetry 95 100 99 Oxygen Delivery Method Room Air Sepsis Recent Fever Within 48 Hours Sepsis New/Unexplained Change in Mental Status Sepsis Action Taken by Nursing 04/03/19 20:30 04/03/19 20:31 04/03/19 20:37 Temperature Temperature Source Pulse Rate 72 73 76 Pulse Rate [Right Finger] Pulse Rate from SpO2 Sensor 76 Respiratory Rate 20 20 20 Respiratory Effort / Characteristics Blood Pressure 235/111 H 249/110 H Blood Pressure Mean 159 162 Pulse Oximetry 96 Oxygen Delivery Method Sepsis Recent Fever Within 48 Hours Sepsis New/Unexplained Change in Mental Status Sepsis Action Taken by Nursing 04/03/19 21:00 04/03/19 21:01 Temperature Temperature Source Pulse Rate 76 74 Pulse Rate [Right Finger] Pulse Rate from SpO2 Sensor Respiratory Rate 26 H 19 Respiratory Effort / Characteristics Blood Pressure 245/102 H Blood Pressure Mean 173 Pulse Oximetry Oxygen Delivery Method Sepsis Recent Fever Within 48 Hours Sepsis New/Unexplained Change in Mental Status Sepsis Action Taken by Nursing GENERAL: Awake, alert, uncomfortable-appearing, in no distress HENT: Normocephalic, atraumatic. Oropharynx with dry mucous membranes and otherwise unremarkable. EYES: Normal conjunctiva. Sclera non-icteric. NECK: Supple. No nuchal rigidity. FROM. No JVD. RESPIRATORY: Diminished breath sounds as bases with scant intermittent wheezing, CARDIAC: Regular rate, normal rhythm. Extremities warm and well perfused. Pulses equal. ABDOMEN: Soft, mildly-distended. No tenderness to palpation. No rebound or guarding. No masses. RECTAL: Deferred. MUSCULOSKELETAL: Chest examination reveals no tenderness. The back is symmetrical on inspection without obvious abnormality. There is no CVA tenderness to palpation. No joint edema. LOWER EXTREMITIES: Calves are equal size bilaterally and non-tender. No edema. No discoloration. NEURO: Normal sensorium. No sensory or motor deficits noted. SKIN: No rash or jaundice noted. Course Course 1818: Past medical records reviewed. The patient was evaluated in room C07. A complete history and physical exam was performed. 2013: [facility] She will evaluate the patient for further management. Continuous Cardiac Monitoring: Indication: Shorntess of breath Rhythm: NSR. Rate: 72 Other: 94% RA Consultations Consultation #1: I [facility] the [facility] She will evaluate the patient for further management. Time: 20:13 Administered Medications Discontinued Medications Albuterol (Duoneb) 3 ml NEB NOW STA Stop: 04/03/19 19:33 Last Admin: 04/03/19 19:55 Dose: 3 ml Documented by: [id number] Carvedilol (Coreg) 12.5 mg PO NOW ONE Stop: 04/03/19 21:05 Last Admin: 04/03/19 21:22 Dose: 12.5 mg Documented by: [id number] Diltiazem HCl (Cardizem) 90 mg PO NOW STA Stop: 04/03/19 21:05 Last Admin: 04/03/19 21:22 Dose: 90 mg Documented by: [id number] Sodium Chloride (Nss) 500 mls @ 999 mls/hr IV .Q31M ONE Stop: 04/03/19 18:50 Last Infusion: 04/03/19 20:51 Dose: 0 mls/hr Documented by: [id number] Admin: 04/03/19 19:27 Dose: 999 mls/hr Documented by: [id number] Prochlorperazine (Compazine) 1 mls @ 1 mls/min IV ONE ONE Stop: 04/03/19 20:44 Last Admin: 04/03/19 20:51 Dose: 1 mls/min Documented by: [id number] Lorazepam (Ativan) 1 mg SL NOW STA Stop: 04/03/19 20:44 Last Admin: 04/03/19 20:51 Dose: 1 mg Documented by: [id number] Methylprednisolone (Solumedrol) 125 mg IV NOW STA Stop: 04/03/19 19:33 Last Admin: 04/03/19 19:50 Dose: 125 mg Documented by: [id number] Nicotine (Nicoderm Cq) Confirm Administered Dose 21 mg TD .STK-MED ONE Stop: 04/03/19 21:19 Last Admin: 04/03/19 21:22 Dose: 21 mg Documented by: [id number] Medical Decision Making Differential Diagnosis Differential diagnosis: Etiologies such as infections, reactive airway disease, COPD, pneumonia, pleural effusion, pulmonary edema, ARDS, pneumothorax, CHF, cardiac ischemia, cardiac tamponade, dysrhythmia, anemia, pulmonary embolism, musculoskeletal, gastrointestinal process, as well as others were entertained. Medical Records Attestation: I reviewed the patient's medical records. Home Medications Current Medication List: was personally reviewed by me Laboratory Data Attestation: I reviewed the patient's lab results. Result diagrams: 04/03/19 19:17 04/03/19 19:17 Lab Results 04/03/19 04/03/19 04/03/19 Range/Units 18:55 19:17 19:17 WBC 10.47 (4.8-10.8) K/uL RBC 4.00 L (4.2-5.4) M/uL Hgb 12.1 (12.0-16.0) g/dL Hct 37.2 (37-47) % MCV 93.0 (80-100) fL MCH 30.3 (25-34) pg MCHC 32.5 (32-36) g/dL RDW Std Deviation 46.5 H (36.4-46.3) fL RDW Coeff of [place] 13.6 (11.5-14.5) % Plt Count 306 (130-400) K/uL MPV 8.9 (7.4-10.4) fL Immature Gran % (Auto) 0.2 % Neut % (Auto) 64.5 % Lymph % (Auto) 27.9 % Real % (Auto) 7.1 % Eos % (Auto) 0.1 % Baso % (Auto) 0.2 % Immature Gran # (Auto) 0.02 (0.00-0.02) K/uL Neut # (Auto) 6.76 H (1.4-6.5) K/uL Lymph # (Auto) 2.92 (1.2-3.4) K/uL Real # (Auto) 0.74 H (0.11-0.59) K/uL Eos # (Auto) 0.01 (0-0.5) K/uL Baso # (Auto) 0.02 (0-0.2) K/uL PT (9.0-12.0) Seconds INR (0.9-1.1) Sodium 140 (136-145) mmol/L Potassium 4.3 (3.5-5.1) mmol/L Chloride 111 H (98-107) mmol/L Carbon Dioxide 22 (21-32) mmol/L Anion Gap 8.0 (3-11) BUN 31 H (7-18) mg/dl Creatinine 1.66 H (0.6-1.2) mg/dl Est Cr Clr Drug Dosing 37.5 ml/min Est GFR ( Amer) 37.6 Est GFR (Non-Af Amer) 32.5 BUN/Creatinine Ratio 18.5 (10-20) Glucose 97 (70-99) mg/dl Lactate (0.4-2.0) mmol/L Calcium 8.2 L (8.5-10.1) mg/dl Phosphorus 3.5 (2.5-4.9) mg/dl Magnesium 2.2 (1.8-2.4) mg/dl Total Bilirubin 0.2 (0.2-1) mg/dl AST 10 L (15-37) U/L ALT 17 (12-78) U/L Alkaline Phosphatase 73 (45-117) U/L Troponin I < 0.015 (0-0.045) ng/ml NT-Pro-B Natriuret Pep 5670 H (0-900) pg/ml Total Protein 6.6 (6.4-8.2) gm/dl Albumin 2.8 L (3.4-5.0) gm/dl Globulin 3.8 (2.5-4.0) gm/dl Albumin/Globulin Ratio 0.7 L (0.9-2) Lipase 111 (73-393) U/L TSH 2.860 (0.300-4.500) uIu/ml Urine Color Yellow Urine Appearance Clear (Clear) Urine pH 6.5 (4.5-7.5) Ur Specific [place] 1.007 (1.000-1.030) Urine Protein 3+ H (Negative) Urine Glucose (UA) Negative (Negative) Urine Ketones Negative (Negative) Urine Blood Negative (Negative) Urine Nitrite Negative (Negative) Urine Bilirubin Negative (Negative) Urine Urobilinogen Negative (Negative) Ur Leukocyte Esterase Negative (Negative) Urine WBC (Auto) 1-5 (0-5) /hpf Urine RBC (Auto) 0-4 (0-4) /hpf U Hyaline Cast (Auto) 0 (0-5) /lpf U Epithel Cells (Auto) 10-20 H (0-5) /lpf Urine Bacteria (Auto) Negative (Negative) 04/03/19 04/03/19 Range/Units 19:17 19:17 WBC (4.8-10.8) K/uL RBC (4.2-5.4) M/uL Hgb (12.0-16.0) g/dL Hct (37-47) % MCV (80-100) fL MCH (25-34) pg MCHC (32-36) g/dL RDW Std Deviation (36.4-46.3) fL RDW Coeff of [place] (11.5-14.5) % Plt Count (130-400) K/uL MPV (7.4-10.4) fL Immature Gran % (Auto) % Neut % (Auto) % Lymph % (Auto) % Real % (Auto) % Eos % (Auto) % Baso % (Auto) % Immature Gran # (Auto) (0.00-0.02) K/uL Neut # (Auto) (1.4-6.5) K/uL Lymph # (Auto) (1.2-3.4) K/uL Real # (Auto) (0.11-0.59) K/uL Eos # (Auto) (0-0.5) K/uL Baso # (Auto) (0-0.2) K/uL PT 9.3 (9.0-12.0) Seconds INR 0.9 (0.9-1.1) Sodium (136-145) mmol/L Potassium (3.5-5.1) mmol/L Chloride (98-107) mmol/L Carbon Dioxide (21-32) mmol/L Anion Gap (3-11) BUN (7-18) mg/dl Creatinine (0.6-1.2) mg/dl Est Cr Clr Drug Dosing ml/min Est GFR ( Amer) Est GFR (Non-Af Amer) BUN/Creatinine Ratio (10-20) Glucose (70-99) mg/dl Lactate 0.8 (0.4-2.0) mmol/L Calcium (8.5-10.1) mg/dl Phosphorus (2.5-4.9) mg/dl Magnesium (1.8-2.4) mg/dl Total Bilirubin (0.2-1) mg/dl AST (15-37) U/L ALT (12-78) U/L Alkaline Phosphatase (45-117) U/L Troponin I (0-0.045) ng/ml NT-Pro-B Natriuret Pep (0-900) pg/ml Total Protein (6.4-8.2) gm/dl Albumin (3.4-5.0) gm/dl Globulin (2.5-4.0) gm/dl Albumin/Globulin Ratio (0.9-2) Lipase (73-393) U/L TSH (0.300-4.500) uIu/ml Urine Color Urine Appearance (Clear) Urine pH (4.5-7.5) Ur Specific [place] (1.000-1.030) Urine Protein (Negative) Urine Glucose (UA) (Negative) Urine Ketones (Negative) Urine Blood (Negative) Urine Nitrite (Negative) Urine Bilirubin (Negative) Urine Urobilinogen (Negative) Ur Leukocyte Esterase (Negative) Urine WBC (Auto) (0-5) /hpf Urine RBC (Auto) (0-4) /hpf U Hyaline Cast (Auto) (0-5) /lpf U Epithel Cells (Auto) (0-5) /lpf Urine Bacteria (Auto) (Negative) Imaging Data Radiologist's Impression: Radiology results as stated below per my review and th e radiologist's interpretation: CT abd pelvis wo con CT DOSE: 454.19 mGy.cm HISTORY: Pain weakness, worsening renal failure, solitary kidney TECHNIQUE: Multiaxial CT images of the abdomen and pelvis were performed without contrast. A dose lowering technique was utilized adhering to the principles of ALARA. COMPARISON STUDY: 04/19/2016 FINDINGS: Lung bases are clear. The liver spleen and pancreas are unremarkable. Prior gastric bypass procedure which has been previously described. Prior left of rectum. Right kidney demonstrates several vascular calcifications. No evidence for nephrocalcinosis or hydronephrosis. Bowel pattern is considered nonobstructive. No significant abdominal or pelvic adenopathy. Atherosclerotic change of the abdominal and pelvic arterial vasculature. Stable postoperative changes of the lumbosacral spine. IMPRESSION: 1. Stable changes of a prior left nephrectomy and gastric bypass type procedure.. 2. Mild stable hepatomegaly. 3. Slight biliary ductal prominence which is unchanged from the prior study and felt to be chronic. 4. No acute or interval process. The above report was generated using voice recognition software. It may contain grammatical, syntax or spelling errors. Electronically signed by: Jose Klein M.D. 04/03/2019 7:49 PM XR chest 1V portable CLINICAL HISTORY: Chest Pain dyspnea COMPARISON STUDY: 09/16/2015 FINDINGS: Mild chronic emphysematous and interstitial change. No focal infiltrate. No evidence for pneumothorax. Diaphragms are smooth. IMPRESSION: Chronic and emphysematous change. No acute process. The above report was generated using voice recognition software. It may contain grammatical, syntax or spelling errors. Electronically signed by: Jose Klein M.D. 04/03/2019 7:50 PM ECG Data Attestation: I personally reviewed and interpreted this ECG as follows: Indication: + SOB/dyspnea Rate (beats per minute): 68 Rhythm: + normal sinus ECG [place]: + Normal ECG ST segments: + Normal ST segments ECG Findings: + Other (QTC 450); no PACs and no PVCs Blood Pressure Blood Pressure Findings: Elevated blood pressure Blood Pressure Disposition: further management by hospitalist MAYELA Narrative The patient is a pleasant 63-year-old woman with a past medical history of remote renal cell carcinoma status post nephrectomy with subsequent CKD who presents emergency department for evaluation after having outpatient lab work showing worsening renal function in the setting of generalized weakness and nausea per hpi. Patient also reports she recently was started on Lasix for fluid overload per hpi. On arrival patient is uncomfortable but no acute distress, afebrile with hypertension 200/100s. The patient appears clinically dry. The patient has scattered wheezes. Limited bedside echo negative for overt pericardial effusion though with limited views secondary to patient positioning. There is greater than 50% IVC variability suggesting component of intravascular depletion. EKG without overt acute ischemia. Chest x-ray negati ve for acute process. Creatinine 1.6 improved from 2 days ago 2.2. Troponin negative. BNP 5K of unclear significance in the setting of the patient's CKD. Given the patient's constellation of symptoms which likely have a component of COPD flare as well as the patient's CKD reasonable to admit the patient for further management. Patient is agreeable. Case was discussed with Dr. Bradley, [facility] hospitalist, who evaluate the patient for admission. Impression & Plan Dehydration, COPD exacerbation, Hypertensive urgency, Stage III chronic kidney disease Discharge Plan Visit Data *Final* Discharge Date/Time: 04/03/19 23:04 Chief Complaint: Abnormal Labs/Diagnostic Testing Stated Complaint: REF. FOR KIDNEY FUNCTION, FLUID ED Provider: Corbin Connor Discharge Problem: Dehydration, COPD exacerbation, Hypertensive urgency, Stage III chronic kidney disease Patient Disposition: Admitted As Inpatient Discharge Instructions Interventions: ED Discharge Assessment Last Done: 04/03/19 23:04 The scribe's documentation has been prepared under my direction and personally reviewed by me in its entirety. I confirm that the note above accurately reflects all work, treatment, procedures, and medical decision making performed by me.
[2019-04-04 05:46] LABS: Basophils # (auto) 0.01 K/uL (0-0.2); Basophils % (auto) 0.1 %; Hematocrit (blood only) 39.2 % (37-47); Hemoglobin 12.6 g/dL (12.0-16.0); Immature Granulocytes # (auto) 0.02 K/uL (0.00-0.02); Immature Granulocytes % (auto) 0.2 %; Lymphocytes # (auto) 0.82 K/uL (1.2-3.4); Lymphocytes % (auto) 8.3 %; Mean Corpuscular Hgb Conc 32.1 g/dL (32-36); Mean Corpuscular Volume 93.3 fL (80-100); Mean Platelet Volume 8.7 fL (7.4-10.4); Monocytes # (auto) 0.04 K/uL (0.11-0.59); Monocytes % (auto) 0.4 %; Neutrophils # (auto) 8.96 K/uL (1.4-6.5); Platelet Count 304 K/uL (130-400); RDW Coefficient of Variation 13.6 % (11.5-14.5); RDW Standard Deviation 46.6 fL (36.4-46.3); White Blood Count 9.85 K/uL (4.8-10.8)
[2019-04-04 06:21] LABS: BUN Creatinine Ratio 17.5 (10-20); Calcium 8.8 mg/dl (8.5-10.1); Creatinine Clr Calc Pharmacy 36.6 ml/min; Est GFR (African American) 36.6; Est GFR (Non-African American) 31.5; Potassium 4.7 mmol/L (3.5-5.1)
--- NOTE | 2019-04-04 07:11 | Ultrasound Report ---
DOPPLER ULTRASOUND OF THE RENAL ARTERIES CLINICAL HISTORY: Hypertension. Solitary kidney COMPARISON STUDY: Abdominal CT dated 04/03/2019. TECHNIQUE: Doppler sonography of the renal arteries was performed to assess renal artery stenosis. Im ages are reviewed in the transverse and longitudinal planes. FINDINGS: The solitary right kidney appears mildly enlarged, measuring 13.6 cm in length. Increased cortical ec hotexture suggests medical renal disease. There is no hydronephrosis. Intrarenal arterial resistive indices of the right kidney range from 0.68 to 0.71. Intrarenal arteria l waveforms are normal with brisk upstrokes. The right renal arterial waveform is normal, and velocit ies within the right renal artery measure up to 172 cm/sec. The right renal vein is patent. The abdominal aorta is patent. Velocities within the abdominal aorta measure up to 81 cm/s. IMPRESSION: 1. There is no sonographic evidence of renal artery stenosis. 2. Increased cortical echotexture of the right kidney suggests medical renal disease. Electronically signed by: Jesus Escobar M.D. 04/04/2019 7:10 AM
[2019-04-04] MEDS: DOCUSATE SODIUM 100 MG CAP PO SCH ×2 (07:29→21:57)
[2019-04-04] MEDS: PANTOprazole 40 MG TAB PO SCH (07:29)
[2019-04-04] MEDS: FUROSEMIDE 20 MG TAB PO SCH (07:29)
[2019-04-04] MEDS: CLOPIDOGREL BISULFATE 75 MG TAB PO SCH (07:29)
[2019-04-04] MEDS: ASPIRIN 81 MG ECTAB PO SCH (07:29)
[2019-04-04] MEDS: NICOTINE 21 MG/24 HR TDSY TD SCH (07:29)
[2019-04-04] MEDS: LISINOPRIL 40 MG TAB PO SCH (07:29)
[2019-04-04] MEDS: carvediloL 25 MG TAB PO SCH ×2 (07:29→21:58)
[2019-04-04] MEDS ORDERED: [UNRECOGNIZED DRUG - OTHER] PO SCH (09:00)
[2019-04-04] MEDS ORDERED: dilTIAZem HCL 180 MG CAPCR PO SCH (09:00)
--- NOTE | 2019-04-04 10:23 | Nephrology Consultation ---
Date of Consultation April 04, 2019 Assessment & Plan (1) Hypertensive urgency: -- Blood pressure controlled at 03/02 Nephrology office visit -- No QUINCY by doppler. Stable kidney function on GUERDA inhibitor therapy -- Clinically euvolemic to volume contracted, euthyroid -- Pressure improving on home regimen with PRN IV Hydralazine -- Patient has already received am medications. Stop Diltiazem and substitute Amlodipine 10 mg daily starting tomorrow -- Will order plasma metanephrine level (2) Stage III chronic kidney disease: -- Solitary R kidney. s/p L nephrectomy 2015 due to RCCA -- Cr stable at 1.6 (3) Proteinuria: -- Proteinuria related to hyperfiltration from solitary kidney and HTN -- Urine sediment is benign History of Present Illness Attending Physician: Isamar Small MD History of Present Illness Ms. Gambino is a 63 year old white female who is seen at the request of Dr. Small for evaluation of hypertensive urgency and CKD. Medical records in the EMR were reviewed today and are summarized as follows: Ms. Gambino was diagnosed w/ RCCA and underwent L HALN 10/28. Post-op her creatinine stabilized at 1.6. She has HTN which has been well controlled w/ Carvedilol, Diltiazem, Lisinopril and Furosemide. BP readings in the office have been ~ 130 mm Hg. Her medical history is also significant for ASCVD s/p PCI with stenting of OM 01/31, migraine KRAMER, tobacco use. Ms. Gambino presented to urgent care 04/01/19 for evaluation of sinus congestion/pain. She was treated w/ Augmentin. Laboratory studies drawn at urgent care revealed Cr 2.2 and patient was advised to present to ED. In ED Ms. Gambino was diagnosed w/ COPD exacerbation. She was treated w/ IV Solumedrol and nebulizers. BP was 226/100. Carvedilol and Diltiazem were administered. Renal artery duplex was negative for QUINCY. Patient was admitted to telemetry bed for ongoing management and IV antihypertensive therapy. Currently Ms. Gambino denies fever, KRAMER, visual change, angina or dyspnea. She complains of fatigue. She slept poorly last night. BP this am 160 - 190 mmHg. Home BP medications have been administered at ~ 9 am. She has PRN IV Labetalol and Hydralazine ordered. Allergies Allergy/AdvReac Type Severity Reaction Status Date / Time lactose Allergy Unknown GI UPSET Verified 02/22/19 14:40 levofloxacin [From Levaquin] Allergy Unknown Verified 04/03/19 22:57 metformin Allergy Unknown Verified 04/03/19 22:57 codeine AdvReac Unknown N&V Verified 02/22/19 14:40 Home Medications Home Medications Medication Instructions Recorded Confirmed Type ergocalciferol (vitamin D2) 50,000 50,000 units PO WEEKLY #12 cap 01/22/19 04/03/19 History unit capsule esomeprazole magnesium 40 mg 40 mg PO DAILY #30 cap 01/22/19 04/03/19 History capsule,delayed release lisinopril 40 mg tablet 40 mg PO DAILY #90 tab 01/22/19 04/03/19 History venlafaxine 37.5 mg 37.5 mg PO DAILY cap 01/22/19 04/03/19 History capsule,extended release 24 hr aspirin 81 mg tablet,delayed 81 mg PO DAILY 02/22/19 04/03/19 History release carvedilol 12.5 mg tablet 12.5 mg PO BID #60 tab 02/22/19 04/03/19 Rx clopidogrel 75 mg tablet 75 mg PO DAILY #30 tab 02/22/19 04/03/19 Rx furosemide 20 mg tablet 20 mg PO DAILY 02/22/19 04/03/19 History amoxicillin 875 mg PO BID 04/03/19 04/03/19 History diltiazem HCl [Cartia XT] 180 mg PO DAILY 04/03/19 04/03/19 History docusate sodium [Col-Rite] 100 mg PO BID 04/03/19 04/03/19 History lactobacillus comb no.10 40 mmu cells PO DAILY 04/03/19 04/03/19 History [Probiotic] potassium chloride 10 meq PO 3XWK 04/03/19 04/03/19 History Patient History Medical History Acquired solitary kidney Anemia Arteriosclerotic coronary artery disease Hypertension Paroxysmal atrial fibrillation Proteinuria Renal cell carcinoma Stage III chronic kidney disease (Acute) Surgical History Previous back surgery S/P appendectomy S/P gastric bypass S/P wrist surgery Social History Preferred Language: Romansh Sustainability Project Coordinator Required: No Beliefs That Will Affect Care: None Current Living Situation: Alone Feels Safe at Home: Yes Smoking Status: Current every day smoker Tobacco Type: cigarettes ; Cigarettes Per Day: 40 ; Second Hand Exposure: No ; Hx Alcohol Use: Yes Alcohol Intake Frequency: Holidays/Special Occasions Hx Substance Use: No Review of Systems Constitutional: no fever, no chills and no weakness Eyes: no worsening vision and no problem reported Ear, Nose, Mouth, Throat: no problem reported Respiratory: no cough and no dyspnea Cardiovascular: no chest pain, no palpitations and no edema Gastrointestinal: no abdominal pain, no nausea, no vomiting and no diarrhea/loose stools Genitourinary: no dysuria and no hematuria Musculoskeletal: no back pain Integumentary: no rash Neurologic: no falls and no dizziness Physical Exam Constitutional: not in distress Eyes: PERRL, conjunctivae normal, anicteric sclerae ENMT: external ear and nose normal, oropharynx normal Neck: trachea midline, no thyromegaly Respiratory: normal respiratory effort, lungs clear to auscultation Cardiovascular: Rate/Rhythm: regular rhythm and + tachycardic Heart Sounds: + murmur Extremities: no edema Gastrointestinal (Abdomen): normal bowel sounds, soft, nontender, no hepatosplenomegaly Musculoskeletal: Extremities: no cyanosis Skin: no rashes, warm and dry Neurologic: awake; not confused Results & Data Vital Signs (Past 12 Hours) Vital Signs Temp Pulse Pulse Pulse Resp BP BP 04/04/19 08:35 197/77 H 04/04/19 07:09 36.6 C 101 H 18 218/84 H 04/04/19 03:45 36.9 C 65 18 04/03/19 23:20 37 C 74 20 04/03/19 23:04 68 18 167/76 H BP Pulse Ox 04/04/19 08:35 04/04/19 07:09 94 04/04/19 03:45 179/85 H 93 04/03/19 23:20 164/70 H 90 04/03/19 23:04 96 Laboratory Results Laboratory Tests 04/03/19 04/04/19 04/04/19 18:55 05:24 05:24 WBC 9.85 Hgb 12.6 Hct 39.2 Plt Count 304 Sodium 142 Potassium 4.7 Chloride 114 H Carbon Dioxide 24 BUN 30 H Creatinine 1.70 H Glucose 184 H Urine Color Yellow Urine Appearance Clear Urine pH 6.5 Ur Specific [place] 1.007 Urine Protein 3+ H Urine Glucose (UA) Negative Urine Blood Negative Ur Leukocyte Esterase Negative Urine WBC (Auto) 1-5 Urine RBC (Auto) 0-4 Diagnostic Findings 04/04 Renal artery doppler: There is no sonographic evidence of renal artery stenosis. PG Care Time/CCT Total # of Minutes Spent Total Time Spent with Patient: Total time spent is greater than 50% in coordi nation of care (as documented) at patient's floor/unit and/or counseling patient: (1) Proteinuria Proteinuria type: unspecified Qualified Code(s): R80.9 - Proteinuria, unspecified
[2019-04-04] MEDS: LABETALOL HCL IV 5 MG/ML 20ML IV PRN ×2 (11:59→16:15)
[2019-04-04] MEDS: ACETAMINOPHEN 325 MG TAB PO PRN (11:59)
--- NOTE | 2019-04-04 16:14 | Hospitalist Progress Note ---
Date of Service April 04, 2019 Assessment & Plan (1) Hypertensive urgency: Patient with markedly elevated blood pressure on arrival to the ER, 245/126. She reports compliance with medications and fairly good control of blood pressure at home and was normal in the Nephrology office 6 weeks ago No clear inciting event, however has been ill with a viral type infection and a possible bacterial sinusitis. Has also been taking naproxen for headaches, and smokes cigarettes. BUN and creatinine = 31 and 1.66 on admission, respectively, EKG with no acute ischemic changes, troponin x1 = negative. Baseline creatinine of approximately 1.6. She is complaining of shortness of breath ongoing since January and she feels this has not acutely worsened. Concern for ongoing renal damage from poorly controlled hypertension and patient with solitary kidney. proBNP elevated in the 5000 range but no evidence of CHF or pleural effusions on CXR ECHO here with mod LVH, preserved EF Renal Duplex shows absence of Right QUINCY, but does show enlarged solitary kidney and med renal disease UA with 3+ proteinuria, but no casts BPs remain elevated here but improved since admission, still requiring IV labetalol and prn hydralazine po Patient with solitary kidney, accelerated hypertension Appreciate Nephro consultation -dc diltiazem and start amlodipine 10mg daily tomorrow -continue increased dose of carvedilol 25mg po bid -Continue Lisinopril 40mg po daily, lasix 20mg daily -continue Hydralazine 25mg po QID PRN SBP > 200 -added Labetalol 10mg IV q4h prn -Eventual blood pressure goal 130/80 -continue to hold Venlafaxine for now - doubt that this medication at this low dosage is contributing to her elevated BP and also has been on this for years -advised to not take any NSAIDs and to quit smoking -of note, did receive 1 dose of IV Solu Medrol in ER which may also be contributing -checking plasma metanephrines -start Cardene gtt if not reposnding or worsening -continue to closely watch BPs (2) Stage III chronic kidney disease: Patient with history of renal cell carcinoma status post left nephrectomy performed in 2015. She follows with Dr. Jacinto Bonilla. She has stable CKD stage III, baseline creatinine of 1.6, GFR of 30-35. Also with proteinuria mentioned in prior nephrology notes. Patient's blood work obtained on 04/01/2019 raised some concern for worsening renal function. Creatinine at that time was 2.2 and BUN was 36. At this point patient reports normal urine output without dysuria/hematuria/frothy urine. Her BUN and creatinine are now back at her baseline. She presents here with hypertensive urgency which certainly could be affecting her renal function. Renal Duplex neg for stenosis as above -Avoid nephrotoxic agents -Renal dosing were appropriate -Monitor intake and output, BUN/creatinine/electrolytes -continue lisinopril, lasix (3) Proteinuria: Chronic. -Continue Lisinopril (4) Arteriosclerotic coronary artery disease: Patient with coronary artery disease s/p LYNDSAY to OM-1 performed on 02/11/19. Presently denies CP. -Continue ASA, Plavix, Carvedilol at increased dosage as above, Lisinopril, Atorvastatin (5) Anemia: Chronic. Stable. No active bleeding -Continue to monitor (6) Paroxysmal atrial fibrillation: Presently in NSR. Patient does admit to more frequent palpitations -continue COreg -dc diltiazem as above in favor of amlodipine -continue Telemetry monitoring (7) Acquired solitary kidney: s/p nephrectomy as above for RCC (8) Acute sinusitis: recently diagnosed and started on Augmentin as outpt -restart Augmentin to complete a 10 day course (9) Acute respiratory failure with hypoxia: intermittently requiring O2 at 2LNC, unclear reason but has felt dyspnea No effusions or PNA on CXR -if continues or worsens, check CT Chest -does have some mild wheezing and is a current smoker so could be secondary to COPD exacerbation -consider nebs but not for now with BP being so high (10) GERD (gastroesophageal reflux disease): continue PPI (11) Current smoker: Counseled on cessation-she is working on quitting -continue Nicotine patch (12) DVT prophylaxis: SCDs Dispo-remain on PCU for hypertensive urgency Subjective Pt reports still having a dull headache, not like her usual migraines. Had some chest tightness earlier that resolved with sitting upright. Has been SOB and coughing. Feels like she has been SOB for weeks, ever since her cardiac cath on 02/11 with stents placed. Reports being put on lasix and has been seen or had labs once weekly since then. Had leg swelling which is now much improved. Has sinus pain and congestion, lots of crusted mucus in her nose. BPs have been significantly elevated here, requiring several doses of IV labetalol and po prn hydralazine in addition to increased dose of carvedilol. Denies any nausea or vomiting, no abd pain. She was having body aches all over when her sinus symptoms first started, but now that's improved. No numbness or tingling except chronic in her feet, no weakness. Tele with NSR, rates 60-70s Review of Systems Review of Systems: All systems reviewed & are unremarkable except as noted in HPI & below Physical Exam Constitutional: WD/WN, vitals as above Eyes: PERRL, conjunctivae normal, anicteric sclerae EOM intact bilaterally; no anisocoria and no nystagmus ENMT: external ear and nose normal, oropharynx normal Nose: + sinus tenderness (over maxillary sinuses bilat); no epistaxis Neck: trachea midline, no thyromegaly Respiratory: normal respiratory effort; no labored breathing Auscultation: + wheezes (mild exp wheezes bilat mid lung edwards); no diminished lung sounds, no crackles and no rhonchi Cardiovascular: RRR, no murmur, no edema Vessels: dorsalis pedis pulses p resent Gastrointestinal (Abdomen): normal bowel sounds, soft, nontender, no hepatosplenomegaly Musculoskeletal: Extremities: extremities normal to inspection; no cyanosis and no clubbing Skin: no rashes, warm and dry Neurologic: moves all extremities and awake; no focal motor deficits Psychiatric: A+Ox3, euthymic affect Results & Data Vital Signs (Past 12 Hours) Vital Signs Temp Pulse Resp BP Pulse Ox 04/04/19 15:25 36.4 C L 70 18 198/100 H 96 04/04/19 13:09 146/74 H 04/04/19 11:51 210/98 H 04/04/19 11:45 37.0 C 79 18 214/91 H 95 04/04/19 08:35 197/77 H 04/04/19 07:09 36.6 C 101 H 18 218/84 H 94 Laboratory Results 04/04/19 04/04/19 04/04/19 Range/Units 11:06 05:43 05:24 WBC (4.8-10.8) K/uL RBC (4.2-5.4) M/uL Hgb (12.0-16.0) g/dL Hct (37-47) % MCV (80-100) fL MCH (25-34) pg MCHC (32-36) g/dL RDW Std Deviation (36.4-46.3) fL RDW Coeff of [place] (11.5-14.5) % Plt Count (130-400) K/uL MPV (7.4-10.4) fL Immature Gran % (Auto) % Neut % (Auto) % Lymph % (Auto) % [place] % (Auto) % Eos % (Auto) % Baso % (Auto) % Immature Gran # (Auto) (0.00-0.02) K/uL Neut # (Auto) (1.4-6.5) K/uL Lymph # (Auto) (1.2-3.4) K/uL [place] # (Auto) (0.11-0.59) K/uL Eos # (Auto) (0-0.5) K/uL Baso # (Auto) (0-0.2) K/uL Sodium 142 (136-145) mmol/L Potassium 4.7 (3.5-5.1) mmol/L Chloride 114 H (98-107) mmol/L Carbon Dioxide 24 (21-32) mmol/L Anion Gap 4.0 (3-11) BUN 30 H (7-18) mg/dl Creatinine 1.70 H (0.6-1.2) mg/dl Est Cr Clr Drug Dosing 36.6 ml/min Est GFR ( Amer) 36.6 Est GFR (Non-Af Amer) 31.5 BUN/Creatinine Ratio 17.5 (10-20) Glucose 184 H (70-99) mg/dl Calcium 8.8 (8.5-10.1) mg/dl Plasma Metanephrine Pending Plasma Normetanephrine Pending Plas Total Metaneph Pending Urine Creatinine 2 Pending Urine Opiates Screen Pending Ur Opiates Confirm Pending Ur Oxycodone Screen Pending Ur Methadone, Qual Pending Ur Methadone Pending Urine Barbiturates Pending Ur Barbiturate Confirm Pending Ur Phencyclidine Scrn Pending Urine PCP Confirm Pending Ur Amphetamines Screen Pending U Amphetamines Confirm Pending U Benzodiazepines Scrn Pending U Benzodiazepine Confm Pending Urine Cocaine Pending U Cocaine Metab Confirm Pending U Marijuana (THC) Screen Pending U Marijuana (THC) Confirm Pending U THC/Creatinine Ratio Pending 04/04/19 Range/Units 05:24 WBC 9.85 (4.8-10.8) K/uL RBC 4.20 (4.2-5.4) M/uL Hgb 12.6 (12.0-16.0) g/dL Hct 39.2 (37-47) % MCV 93.3 (80-100) fL MCH 30.0 (25-34) pg MCHC 32.1 (32-36) g/dL RDW Std Deviation 46.6 H (36.4-46.3) fL RDW Coeff of [place] 13.6 (11.5-14.5) % Plt Count 304 (130-400) K/uL MPV 8.7 (7.4-10.4) fL Immature Gran % (Auto) 0.2 % Neut % (Auto) 91.0 % Lymph % (Auto) 8.3 % [place] % (Auto) 0.4 % Eos % (Auto) 0.0 % Baso % (Auto) 0.1 % Immature Gran # (Auto) 0.02 (0.00-0.02) K/uL Neut # (Auto) 8.96 H (1.4-6.5) K/uL Lymph # (Auto) 0.82 L (1.2-3.4) K/uL [place] # (Auto) 0.04 L (0.11-0.59) K/uL Eos # (Auto) 0.00 (0-0.5) K/uL Baso # (Auto) 0.01 (0-0.2) K/uL Sodium (136-145) mmol/L Potassium (3.5-5.1) mmol/L Chloride (98-107) mmol/L Carbon Dioxide (21-32) mmol/L Anion Gap (3-11) BUN (7-18) mg/dl Creatinine (0.6-1.2) mg/dl Est Cr Clr Drug Dosing ml/min Est GFR ( Amer) Est GFR (Non-Af Amer) BUN/Creatinine Ratio (10-20) Glucose (70-99) mg/dl Calcium (8.5-10.1) mg/dl Plasma Metanephrine Plasma Normetanephrine Plas Total Metaneph Urine Creatinine 2 Urine Opiates Screen Ur Opiates Confirm Ur Oxycodone Screen Ur Methadone, Qual Ur Methadone Urine Barbiturates Ur Barbiturate Confirm Ur Phencyclidine Scrn Urine PCP Confirm Ur Amphetamines Screen U Amphetamines Confirm U Benzodiazepines Scrn U Benzodiazepine Confm Urine Cocaine U Cocaine Metab Confirm U Marijuana (THC) Screen U Marijuana (THC) Confirm U THC/Creatinine Ratio Diagnostic Findings Renal Duplex neg for QUINCY, with MRD of right kidney ECHO with preserved EF , moderate LVH PG Care Time/CCT Total # of Minutes Spent Total Time Spent with Patient: Total time spent is greater than 50% in coordination of care (as documented) at patient's floor/unit and/or counseling patient: (1) Proteinuria Proteinuria type: unspecified Qualified Code(s): R80.9 - Proteinuria, uns pecified
[2019-04-04] MEDS: AMOXICILLIN/CLAVULANATE 875 MG TAB PO SCH (17:29)
[2019-04-04] MEDS ORDERED: LORazepam 2 MG/4 ML VIAL IV STA (21:39)
[2019-04-05 05:45] LABS: Hematocrit (blood only) 34.4 % (37-47); Hemoglobin 11.3 g/dL (12.0-16.0); Mean Corpuscular Hemoglobin 30.5 pg (25-34); Mean Corpuscular Hgb Conc 32.8 g/dL (32-36); Mean Corpuscular Volume 92.7 fL (80-100); Mean Platelet Volume 8.7 fL (7.4-10.4); Platelet Count 295 K/uL (130-400); RDW Coefficient of Variation 13.8 % (11.5-14.5); RDW Standard Deviation 46.8 fL (36.4-46.3); Red Blood Count 3.71 M/uL (4.2-5.4); White Blood Count 17.56 K/uL (4.8-10.8)
[2019-04-05 05:53] LABS: Amphetamines, Ur NEGATIVE NG/ML (CUTOFF=500); Amphetemines Ur GC/MS DNR NG/ML (CUTOFF=250); Barbiturates, Urine NEGATIVE NG/ML (CUTOFF=300); Benzodiazepines,Ur NEGATIVE NG/ML (CUTOFF=100); Cocaine, Urine NEGATIVE NG/ML (CUTOFF=150); Cocaine,Ur GC/MS DNR NG/ML (CUTOFF=100); Methadone, Ur GC/MS DNR NG/ML (CUTOFF=100); Methadone, Urine NEGATIVE NG/ML (CUTOFF=100); Opiates, Urine NEGATIVE NG/ML (CUTOFF=100); Oxycodone,Ur Screen NEGATIVE NG/ML (CUTOFF=100); Phencyclidine, Ur NEGATIVE NG/ML (CUTOFF=25); Phencyclidine,Ur GC/MS DNR NG/ML (CUTOFF=25); THC20, Qual, Urine NEGATIVE NG/ML (CUTOFF=20)
[2019-04-05 06:21] LABS: Albumin Level 2.6 gm/dl (3.4-5.0); BUN Creatinine Ratio 19.2 (10-20); Calcium 8.3 mg/dl (8.5-10.1); Est GFR (African American) 29.9; Est GFR (Non-African American) 25.8; Potassium 4.2 mmol/L (3.5-5.1)
[2019-04-05 06:23] LABS: Albumin Globulin Ratio 0.8 (0.9-2); Bilirubin,Total 0.2 mg/dl (0.2-1); Globulin 3.3 gm/dl (2.5-4.0); Total Protein 5.9 gm/dl (6.4-8.2)
[2019-04-05] MEDS: AMOXICILLIN/CLAVULANATE 875 MG TAB PO SCH ×2 (08:21→18:17)
[2019-04-05] MEDS: carvediloL 25 MG TAB PO SCH ×2 (08:22→19:40)
[2019-04-05] MEDS: DOCUSATE SODIUM 100 MG CAP PO SCH ×2 (08:22→19:39)
[2019-04-05] MEDS: FUROSEMIDE 20 MG TAB PO SCH (08:23)
[2019-04-05] MEDS: CLOPIDOGREL BISULFATE 75 MG TAB PO SCH (08:23)
[2019-04-05] MEDS: LISINOPRIL 40 MG TAB PO SCH (08:23)
[2019-04-05] MEDS: AMLODIPINE BESYLATE 5 MG TAB PO SCH (08:23)
[2019-04-05] MEDS: ASPIRIN 81 MG ECTAB PO SCH (08:23)
[2019-04-05] MEDS: PANTOprazole 40 MG TAB PO SCH (08:24)
[2019-04-05] MEDS: NICOTINE 21 MG/24 HR TDSY TD SCH (08:25)
[2019-04-05] MEDS: NICOTINE POLACRILEX 2 MG GUM MT PRN ×2 (08:33→14:55)
[2019-04-05] MEDS: LORazepam 1 MG TAB PO PRN ×2 (09:18→14:52)
--- NOTE | 2019-04-05 10:43 | Hospitalist Progress Note ---
Date of Service April 05, 2019 Assessment & Plan (1) Hypertensive urgency: Patient with markedly elevated blood pressure on arrival to the ER, 245/126. She reports compliance with medications and fairly good control of blood pressure at home and was normal in the Nephrology office 6 weeks ago No clear inciting event, however has been ill with a viral type infection and a possible bacterial sinusitis. Has also been taking naproxen for headaches, and smokes cigarettes. Also with significant anxiety contributing BUN and creatinine = 31 and 1.66 on admission, respectively, EKG with no acute ischemic changes, troponin x1 = negative. Baseline creatinine of approximately 1.6. She is complaining of shortness of breath ongoing since January and she feels this has not acutely worsened. Concern for ongoing renal damage from poorly controlled hypertension and patient with solitary kidney. proBNP elevated in the 5000 range but no evidence of CHF or pleural effusions on CXR or on CT of the chest ECHO here with mod LVH, preserved EF Renal Duplex shows absence of Right QUINCY, but does show enlarged solitary kidney and med renal disease UA with 3+ proteinuria, but no casts BPs remain elevated here but continued to improve since admission, still requiring IV labetalol and prn hydralazine po Patient with solitary kidney, accelerated hypertension, and worsening renal function today, creatinine up to 2.2 Appreciate Nephro consultation -dcd home diltiazem and started amlodipine 10mg daily -continue increased dose of carvedilol 25mg po bid -With worsening renal function, now holding lisinopril 40mg po daily, lasix 20mg daily -continue Hydralazine 25mg po QID PRN SBP > 200 -Continue labetalol 10mg IV q4h prn -Add clonidine 0.1 mg p.o. twice daily as per nephrology recommendation -Eventual blood pressure goal 130/80 -Initially held venlafaxine but given significant anxiety, will restart to prevent withdrawal- doubt that this medication at this low dosage is contributing to her elevated BP and also has been on this for years -advised to not take any NSAIDs and to quit smoking -of note, did receive 1 dose of IV Solu Medrol in ER which may also be contributing -checking plasma metanephrines-pending -continue to closely watch BPs (2) Stage III chronic kidney disease: With acute renal insufficiency in the setting of CKD stage III Patient with history of renal cell carcinoma status post left nephrectomy performed in 2015. She follows with Dr. Jacinto Bonilla. She has stable CKD stage III, baseline creatinine of 1.6, GFR of 30-35. Also with proteinuria mentioned in prior nephrology notes. Patient's blood work obtained on 04/01/2019 raised some concern for worsening renal function. Creatinine at that time was 2.2 and BUN was 36. At this point patient reports normal urine output without dysuria/hematuria/frothy urine. She presents here with hypertensive urgency which certainly could be affecting her renal function. Renal Duplex neg for stenosis as above Creatinine trended back up to 2.2 now -Avoid nephrotoxic agents -Renal dosing were appropriate -Monitor intake and output, BUN/creatinine/electrolytes -Discontinue lisinopril, and hold Lasix for now (3) Proteinuria: Chronic. -Holding lisinopril -Defer treatment to nephrology (4) Arteriosclerotic coronary artery disease: Patient with coronary artery disease s/p LYNDSAY to OM-1 performed on 02/11/19. Presently denies CP. -Continue ASA, Plavix, Carvedilol at increased dosage as above, Atorvastatin -Holding lisinopril (5) Anemia: Chronic. Stable. No active bleeding -Continue to monitor (6) Paroxysmal atrial fibrillation: Continues in NSR. Patient does admit to more frequent palpitations -continue COreg -dcd diltiazem as above in favor of amlodipine -continue Telemetry monitoring (7) Acquired solitary kidney: s/p nephrectomy as above for RCC (8) Acute sinusitis: recently diagnosed and started on Augmentin as outpt -Continue Augmentin to complete a 10 day course-today day 3 (9) Acute respiratory failure with hypoxia: intermittently requiring O2 at 2LNC, unclear reason but likely with mild acute bronchitis in the setting of undiagnosed COPD No effusions or PNA on CXR CT chest with chronic findings and significant emphysematous changes -Seems improved today -Wean supplemental O2 off as able to to keep pulse ox greater than 88% (10) GERD (gastroesophageal reflux disease): continue PPI (11) Current smoker: Is having significant anxiety with not being able to smoke cigarettes in the hospital -Continue nicotine patch and increased dose -Add Ativan p.o. as needed -Counseled on cessation-she is working on quitting (12) DVT prophylaxis: SCDs Dispo-remain on PCU for hypertensive urgency Subjective Was very anxious overnight and got IV ativan, said it's a "miracle drug." Was again tearful and anxious this AM as per RN and wanted to smoke cigarettes, said she wanted to leave the hospital now if she wasn't having more tests. She was given po ativan and is feeling much less anxious. Still requiring O2 and feels SOB without it. Some mild cough, still feels her sinuses are congested.Denies headache or chest pain. I discussed her case with Nephrology Review of Systems Review of Systems: All systems reviewed & are unremarkable except as noted in HPI & below Physical Exam Constitutional: WD/WN, vitals as above Eyes: + anicteric sclerae and EOM intact bilaterally; no anisocoria and no nystagmus ENMT: external ear and nose normal, oropharynx normal Nose: + sinus tenderness (over maxillary sinuses bilat); no epistaxis Neck: trachea midline, no thyromegaly Respiratory: normal respiratory effort, lungs clear to auscultation Cardiovascular: RRR, no murmur, no edema Vessels: dorsalis pedis pulses present Gastrointestinal (Abdomen): normal bowel sounds, soft, nontender, no hepatosplenomegaly Musculoskeletal: Extremities: extremities normal to inspection; no cyanosis and no clubbing Skin: no rashes, warm and dry Neurologic: moves all extremities and awake; no focal motor deficits Psychiatric: Orientation: alert and oriented x 3 Affect: + anxious affect Results & Data Vital Signs (Past 12 Hours) Vital Signs Temp Pulse Resp BP Pulse Ox 04/05/19 07:07 36.8 C 65 17 189/76 H 97 04/05/19 03:56 36.6 C 66 18 172/73 H 96 04/04/19 23:15 37.1 C 75 20 167/70 H 95 Laboratory Results 04/05/19 04/05/19 Range/Units 14:38 05:22 Sodium 138 142 (136-145) mmol/L Potassium 4.8 4.2 (3.5-5.1) mmol/L Chloride 110 H 113 H (98-107) mmol/L Carbon Dioxide 26 26 (21-32) mmol/L Anion Gap 2.0 L 3.0 (3-11) BUN 37 H 39 H (7-18) mg/dl Creatinine 2.20 H 2.01 H D (0.6-1.2) mg/dl Est Cr Clr Drug Dosing 28.3 31.0 ml/min Est GFR ( Amer) 26.8 29.9 Est GFR (Non-Af Amer) 23.1 25.8 BUN/Creatinine Ratio 16.7 19.2 (10-20) Glucose 104 H 103 H (70-99) mg/dl Calcium 8.5 8.3 L (8.5-10.1) mg/dl Total Bilirubin 0.2 (0.2-1) mg/dl AST 7 L (15-37) U/L ALT 16 (12-78) U/L Alkaline Phosphatase 61 (45-117) U/L Total Protein 5.9 L (6.4-8.2) gm/dl Albumin 2.6 L (3.4-5.0) gm/dl Globulin 3.3 (2.5-4.0) gm/dl Albumin/Globulin Ratio 0.8 L (0.9-2) Diagnostic Findings CT chest wo con CLINICAL HISTORY: 63 years-old Female presenting with hypoxia, smoker. TECHNIQUE: Multidetector CT imaging of the chest was performed without the use of intravenous contrast. IV contrast: None. One or more dose lowering techniques were used consistent with the principles of ALARA (as low as reasonably achievable), including automatic exposure control, mA or kV adjustment to individual patient size, and/or use of iterative reconstruction. COMPARISON: 12/13/2017. CT DOSE (mGy.cm): The estimated cumulative dose is 365.70 mGy.cm. FINDINGS: [employer] Supervisor topogram: Unremarkable. Soft tissues: Normal thyroid and thoracic inlet. No axillary, supraclavicular, or mediastinal lymphadenopathy. Evaluation of the drew limited without intravenous contrast. Atherosclerosis of the aorta. Extensive three-vessel coronary artery calcification. Aortic valve calcification. Normal heart size. No pericardial or pleural effusion. Postsurgical changes of Alondra-en-Y gastric bypass. Biliary ductal prominence likely a reservoir effect in the cholecystectomy state. Lungs and airways: No pneumothorax. Central airways patent. Mild diffuse bronchial wall thickening. Moderate to severe upper lobe predominant centrilobular and paraseptal emphysema. Subpleural cystic change and reticular opacities likely represent early fibrotic change. Pulmonary arteries are not significantly enlarged relative to adjacent bronchi. No interlobular septal thickening. Groundglass centrilobular added density is suggested diffusely. Redemonstration of the solid spiculated 7 mm right upper lobe nodule, previously 8 mm, unchanged (series 4 image 76). Several solid subpleural and fissural polygonal nodules are again demonstrated, unchanged and with benign morphologies. No new nodule or infiltrate. Musculoskeletal: Degenerative changes of the spine. IMPRESSION: 1. No new or enlarging pulmonary nodule. 2. Stable spiculated solid 7 mm right upper lobe nodule. 3. Smoking-related lung injury with moderate to severe emphysema, bronchitis, and respiratory bronchiolitis. No focal infiltrate to suggest pneumonia. 4. Extensive coronary artery calcification. PG Care Time/CCT Total # of Minutes Spent Total Time Spent with Patient: Total time spent is greater than 50% in coordination of care (as documented) at patient's floor/unit and/or counseling patient: (1) Proteinuria Proteinuria type: unspecified Qualified Code(s): R80.9 - Proteinuria, unspecified
--- NOTE | 2019-04-05 11:55 | CT Scan Report ---
CT chest wo con CLINICAL HISTORY: 63 years-old Female presenting with hypoxia, smoker. TECHNIQUE: Multidetector CT imaging of the chest was performed without the use of intravenous contras t. IV contrast: None. One or more dose lowering techniques were used consistent with the principles o f ALARA (as low as reasonably achievable), including automatic exposure control, mA or kV adjustment to individual patient size, and/or use of iterative reconstruction. COMPARISON: 12/13/2017. CT DOSE (mGy.cm): The estimated cumulative dose is 365.70 mGy.cm. FINDINGS: Plastic Maker topogram: Unremarkable. Soft tissues: Normal thyroid and thoracic inlet. No axillary, supraclavicular, or mediastinal lymphad enopathy. Evaluation of the drew limited without intravenous contrast. Atherosclerosis of the aorta. Extensive three-vessel coronary artery calcification. Aortic valve calcification. Normal heart size. No pericardial or pleural effusion. Postsurgical changes of Alondra-en-Y gastric bypass. Biliary ductal prominence likely a reservoir effect in the cholecystectomy state. Lungs and airways: No pneumothorax. Central airways patent. Mild diffuse bronchial wall thickening. M oderate to severe upper lobe predominant centrilobular and paraseptal emphysema. Subpleural cystic ch jo and reticular opacities likely represent early fibrotic change. Pulmonary arteries are not signi ficantly enlarged relative to adjacent bronchi. No interlobular septal thickening. Groundglass centri lobular added density is suggested diffusely. Redemonstration of the solid spiculated 7 mm right uppe r lobe nodule, previously 8 mm, unchanged (series 4 image 76). Several solid subpleural and fissural polygonal nodules are again demonstrated, unchanged and with benign morphologies. No new nodule or in filtrate. Musculoskeletal: Degenerative changes of the spine. IMPRESSION: 1. No new or enlarging pulmonary nodule. 2. Stable spiculated solid 7 mm right upper lobe nodule. 3. Smoking-related lung injury with moderate to severe emphysema, bronchitis, and respiratory bronch iolitis. No focal infiltrate to suggest pneumonia. 4. Extensive coronary artery calcification. Electronically signed by: Kirk Dubon M.D. 04/05/2019 11:54 AM
[2019-04-05] MEDS: NICOTINE 7 MG/24 HR TDSY TD SCH (12:05)
--- NOTE | 2019-04-05 12:44 | Nephrology Progress Note ---
Date of Service April 05, 2019 Assessment & Plan (1) Hypertensive urgency: -- Blood pressure controlled at 03/02 Nephrology office visit -- No QUINCY by doppler. -- Clinically euvolemic to volume contracted, euthyroid -- Diltiazem switched to Amlodipine 10 mg daily today -- Plasma metanephrine level pending -- Suggest addition of low dose clonidine if no improvement -- Suspect nicotine dependence is contributing (2+ ppd smoker at home) (2) Stage III chronic kidney disease: -- Solitary R kidney. s/p L nephrectomy 2015 due to RCCA -- Cr increased to 2.0 mg/dL -- Repeat metabolic profile this afternoon -- If continues to rise, will need to hold GUERDA and possibly diuretic (3) Proteinuria: -- Proteinuria related to hyperfiltration from solitary kidney and HTN -- Urine sediment is benign Subjective No acute events overnight. Anxiety noted. Really would like a cigarette. Dyspnea improved. Appetite reduced. No other GI symptoms. No fevers or chills. No edema. Review of Systems Review of Systems: All systems reviewed & are unremarkable except as noted in HPI & below Physical Exam Constitutional: well developed; no acute distress Eyes: no scleral abnormality and no corneal abnormality ENMT: Mouth: no oral mucosal abnormality and oral mucous membranes not dry Neck: normal visual inspection; + trachea not midline Respiratory: normal respiratory effort Auscultation: + rhonchi and + wheezes Cardiovascular: Rate/Rhythm: regular rate Heart Sounds: normal S1 and normal S2 Extremities: no edema Gastrointestinal (Abdomen): Percussion/Palpation: abdomen soft; abdomen nontender Musculoskeletal: Extremities: no cyanosis and no clubbing Skin: normal turgor; no lesions Neurologic: Motor/Sensory: no tremor and no asterixis Psychiatric: Orientation: alert and oriented x 3 Results & Data Vital Signs (Past 12 Hours) Vital Signs Temp Pulse Pulse Resp BP Pulse Ox 04/05/19 11:36 36.8 C 73 18 124/60 93 04/05/19 11:07 65 04/05/19 10:03 165/82 H 04/05/19 07:07 36.8 C 65 17 189/76 H 97 04/05/19 03:56 36.6 C 66 18 172/73 H 96 Laboratory Results Laboratory Results - last 24 hr 04/04/19 04/05/19 04/05/19 05:43 05:22 05:22 WBC 17.56 H RBC 3.71 L Hgb 11.3 L Hct 34.4 L MCV 92.7 MCH 30.5 MCHC 32.8 RDW Std Deviation 46.8 H RDW Coeff of [place] 13.8 Plt Count 295 MPV 8.7 Sodium 142 Potassium 4.2 Chloride 113 H Carbon Dioxide 26 Anion Gap 3.0 BUN 39 H Creatinine 2.01 H D Est Cr Clr Drug Dosing 31.0 Est GFR ( Amer) 29.9 Est GFR (Non-Af Amer) 25.8 BUN/Creatinine Ratio 19.2 Glucose 103 H Calcium 8.3 L Total Bilirubin 0.2 AST 7 L ALT 16 Alkaline Phosphatase 61 Total Protein 5.9 L Albumin 2.6 L Globulin 3.3 Albumin/Globulin Ratio 0.8 L Urine Creatinine 2 53.9 Urine Opiates Screen NEGATIVE Ur Opiates Confirm DNR Ur Oxycodone Screen NEGATIVE Ur Methadone, Qual NEGATIVE Ur Methadone DNR Urine Barbiturates NEGATIVE Ur Barbiturate Confirm DNR Ur Phencyclidine Scrn NEGATIVE Urine PCP Confirm DNR Ur Amphetamines Screen NEGATIVE U Amphetamines Confirm DNR U Benzodiazepines Scrn NEGATIVE U Benzodiazepine Confm DNR Urine Cocaine NEGATIVE U Cocaine Metab Confirm DNR U Marijuana (THC) Screen NEGATIVE U Marijuana (THC) Confirm DNR U THC/Creatinine Ratio DNR Ur Drug Screen Comment DNR PG Care Time/CCT Total # of Minutes Spent Total Time Spent with Patient: Total time spent is greater than 50% in coordination of care (as documented) at patient's floor/unit and/or counseling patient: (1) Proteinuria Proteinuria type: unspecified Qualified Code(s): R80.9 - Proteinuria, unspecified
[2019-04-05] MEDS: ACETAMINOPHEN 325 MG TAB PO PRN (14:56)
[2019-04-05 15:05] LABS: BUN Creatinine Ratio 16.7 (10-20); Calcium 8.5 mg/dl (8.5-10.1); Creatinine Clr Calc Pharmacy 28.3 ml/min; Est GFR (African American) 26.8; Est GFR (Non-African American) 23.1; Potassium 4.8 mmol/L (3.5-5.1)
[2019-04-05] MEDS ORDERED: LORazepam 1 MG TAB PO PRN (15:05)
[2019-04-05] MEDS: LABETALOL HCL IV 5 MG/ML 20ML IV PRN (17:04)
[2019-04-05] MEDS: cloNIDine HCl 0.1 MG TAB PO SCH (19:39)
[2019-04-05] MEDS ORDERED: LORazepam 2 MG/4 ML VIAL IV STA (23:49)
[2019-04-06] MEDS: LABETALOL HCL IV 5 MG/ML 20ML IV PRN (04:45)
[2019-04-06 07:21] LABS: BUN Creatinine Ratio 20.3 (10-20); Calcium 8.1 mg/dl (8.5-10.1); Creatinine Clr Calc Pharmacy 32.8 ml/min; Est GFR (Non-African American) 27.6; Magnesium 2.3 mg/dl (1.8-2.4); Phosphorus 4.3 mg/dl (2.5-4.9); Potassium 4.3 mmol/L (3.5-5.1)
[2019-04-06] MEDS: NICOTINE 21 MG/24 HR TDSY TD SCH (08:09)
[2019-04-06] MEDS: NICOTINE 7 MG/24 HR TDSY TD SCH (08:09)
[2019-04-06] MEDS: AMLODIPINE BESYLATE 5 MG TAB PO SCH (08:12)
[2019-04-06] MEDS: PANTOprazole 40 MG TAB PO SCH (08:12)
[2019-04-06] MEDS: CLOPIDOGREL BISULFATE 75 MG TAB PO SCH (08:12)
[2019-04-06] MEDS: DOCUSATE SODIUM 100 MG CAP PO SCH (08:13)
[2019-04-06] MEDS: carvediloL 25 MG TAB PO SCH (08:13)
[2019-04-06] MEDS: AMOXICILLIN/CLAVULANATE 875 MG TAB PO SCH (08:13)
[2019-04-06] MEDS: ASPIRIN 81 MG ECTAB PO SCH (08:14)
[2019-04-06] MEDS: ACETAMINOPHEN 325 MG TAB PO PRN (08:17)
[2019-04-06] MEDS: cloNIDine HCl 0.1 MG TAB PO SCH (08:17)
[2019-04-06] MEDS ORDERED: VENLAFAXINE HCL XR 37.5 MG CAPXR PO SCH (09:00)
--- NOTE | 2019-04-06 10:45 | Nephrology Progress Note ---
Date of Service April 06, 2019 Assessment & Plan (1) Hypertensive urgency: -- Blood pressure improved -- No QUINCY by duplex -- Clinically euvolemic -- Diltiazem switched to Amlodipine 10 mg daily -- Plasma metanephrine level pending -- Suggest addition of low dose clonidine if no improvement -- Suspect nicotine dependence is contributing (2+ ppd smoker at home) -- Patient can monitor at home (2) Stage III chronic kidney disease: -- Solitary R kidney. s/p L nephrectomy 2015 due to RCCA -- Cr stable at 1.9 mg/dL -- Repeat metabolic profile early next week -- f/u in the nephrology clinic as outpatient in 2 weeks -- Lisinopril held pending additional monitoring (3) Proteinuria: -- Proteinuria related to hyperfiltration from solitary kidney and HTN -- Urine sediment is benign (4) COPD exacerbation: (5) Acquired solitary kidney: (6) Coronary artery disease: -- f/u with cardiology as an outpatient -- ? future benefit of R heart cath if respiratory symptoms persist Subjective No acute events overnight. Anxiety noted. Really would like a cigarette. Dyspnea improved. Abdominal symptoms including dyspepsia and bloating associated with recent change in diet. Would really like to go home today. Review of Systems Review of Systems: All systems reviewed & are unremarkable except as noted in HPI & below Physical Exam Constitutional: well developed; no acute distress Eyes: no scleral abnormality and no corneal abnormality ENMT: Mouth: no oral mucosal abnormality and oral mucous membranes not dry Neck: normal visual inspection and trachea midline Respiratory: normal respiratory effort Auscultation: lungs clear to auscultation bilaterally and + rhonchi Cardiovascular: Rate/Rhythm: regular rate Heart Sounds: normal S1 and normal S2 Extremities: no edema Gastrointestinal (Abdomen): Percussion/Palpation: abdomen soft; abdomen nontender Musculoskeletal: Extremities: no cyanosis and no clubbing Skin: normal turgor; no lesions Neurologic: Motor/Sensory: no tremor and no asterixis Psychiatric: Orientation: alert and oriented x 3 Results & Data Vital Signs (Past 12 Hours) Vital Signs Temp Pulse Pulse Resp BP Pulse Ox 04/06/19 08:00 36.8 C 74 18 150/74 H 96 04/06/19 05:30 153/80 H 04/06/19 04:40 36.6 C 66 18 184/73 H 94 04/06/19 00:52 65 04/05/19 23:03 36.5 C 67 19 160/80 H 97 Laboratory Results Laboratory Results - last 24 hr 04/05/19 04/06/19 14:38 06:34 Sodium 138 141 Potassium 4.8 4.3 Chloride 110 H 111 H Carbon Dioxide 26 25 Anion Gap 2.0 L 5.0 BUN 37 H 39 H Creatinine 2.20 H 1.90 H D Est Cr Clr Drug Dosing 28.3 32.8 Est GFR ( Amer) 26.8 32.0 Est GFR (Non-Af Amer) 23.1 27.6 BUN/Creatinine Ratio 16.7 20.3 H Glucose 104 H 110 H Calcium 8.5 8.1 L Phosphorus 4.3 Magnesium 2.3 PG Care Time/CCT Total # of Minutes Spent Total Time Spent with Patient: Total time spent is greater than 50% in coordination of care (as documented) at patient's floor/unit and/or counseling patient: (1) Proteinuria Proteinuria type: unspecified Qualified Code(s): R80.9 - Proteinuria, unspecified
[2019-04-06] MEDS ORDERED: FUROSEMIDE 20 MG in SYRINGE 0 ML IV ONE (11:00)
--- NOTE | 2019-04-06 12:14 | Discharge Summary ---
Date of Service April 06, 2019 Admission HPI Per Admitting Provider Hanh Gambino is a 63-year-old female with multiple medical problems presenting with feeling ill over the last week. She has history of CAD s/p LYNDSAY placed to the -1 on 02/11/2019 on aspirin and Plavix, history of renal cell carcinoma status post left nephrectomy in 2016, hypertension, CKD stage III, ongoing proteinuria. Patient states that she was experiencing some subjective fevers and chills last week as well as some facial pain, sinus congestion. She was seen at urgent care on 04/01/2019 and was given a prescription for Augmentin to treat possible sinusitis. She had blood work drawn on 04/01. Yesterday the physician from urgent care contacted her and stated that they were quite concerned about her renal decline and she was instructed to come to the ER. Labs from that time show a BUN of 36 and creatinine of 2.2 Upon arrival patient found to be afebrile, markedly hypertensive at 226/100. She reports compliance with her medications. Denies stimulant use or [id number] cold medications. She thinks that her blood pressure has been up over the last 3 days she has felt pressure in her head as well as a "whooshing sound in her ears". She also complains of frequent palpitations over the last 3 days associated with shortness of breath. She states she has no energy and becomes markedly dyspneic with exertion, occasional dizziness. She also feels that her feet have become swollen and thinks she has mild orthopnea. She denies chest pain, weight gain, abdominal pain, nausea, vomiting, diarrhea, constipation. She reports slightly less urine output yesterday with normal urine output today. Denies dysuria/frequency/urgency/hematuria/foamy urine. Denies flank pain. Bedside ultrasound was performed by the ER attending and reports that her IVC was fairly collapsible. Patient follows with nephrology, Dr. Bonilla. Last seen on 02/22/2019. Reviewed that note reveals patient with baseline creatinine of approximately 1.6 which has been stable. Also with fairly well-controlled blood pressure, goal of 130/80, patient with CAD/CKD/solitary kidney. ER course: Albuterol 3 mL neb, Solu-Medrol 125 mg IV, normal saline x500 mL, prochlorperazine, Lorazepam, carvedilol 12.5 mg, diltiazem 90 mg, nicotine 21 mg patch Principal Diagnosis Hypertensive urgency Acute hypoxic respiratory failure Discharge Exam Constitutional WD/WN, vitals as above Eyes + anicteric sclerae and EOM intact bilaterally; no anisocoria and no nystagmus ENMT external ear and nose normal, oropharynx normal Nose: no epistaxis Neck trachea midline, no thyromegaly Respiratory normal respiratory effort, lungs clear to auscultation no labored breathing Cardiovascular RRR, no murmur, no edema Vessels: dorsalis pedis pulses present Gastrointestinal (Abdomen) normal bowel sounds, soft, nontender, no hepatosplenomegaly Musculoskeletal Extremities: extremities normal to inspection; no cyanosis and no clubbing Skin no rashes, warm and dry Neurologic moves all extremities and awake; no focal motor deficits Psychiatric A+Ox3, euthymic affect Discharge Data Allergies Allergy/AdvReac Type Severity Reaction Status Date / Time lactose Allergy Unknown GI UPSET Verified 02/22/19 14:40 levofloxacin [From Levaquin] Allergy Unknown Verified 04/03/19 22:57 metformin Allergy Unknown Verified 04/03/19 22:57 codeine AdvReac Unknown N&V Verified 02/22/19 14:40 Consultations 04/03/19 20:13 ED Decision to Admit Stat 04/04/19 09:21 Consult Nephrology Routine Ordered Studies 04/03/19 18:20 CT abd pelvis wo con Stat 04/03/19 18:33 US point of care ultrasound Stat 04/04/19 00:06 US duplex renal artery Urgent 04/05/19 10:23 CT chest wo con Routine Echocardiogram CXR Hospital Course (1) Hypertensive urgency: Patient with markedly elevated blood pressure on arrival to the ER, 245/126. She reports compliance with medications and fairly good control of blood pressure at home and was normal in the Nephrology office 6 weeks ago No clear inciting event, however has been ill with a viral type infection and a possible bacterial sinusitis. Has also been taking naproxen for headaches, and smokes cigarettes. Also with significant anxiety contributing BUN and creatinine = 31 and 1.66 on admission, respectively, EKG with no acute ischemic changes, troponin x1 = negative. Baseline creatinine of approximately 1.6. She is complaining of shortness of breath ongoing since January and she feels this has not acutely worsened. Concern for ongoing renal damage from poorly controlled hypertension and patient with solitary kidney. Also likely some dyspnea secondary to her COPD proBNP elevated in the 5000 range but no evidence of CHF or pleural effusions on CXR or on CT of the chest ECHO here with mod LVH, preserved EF Renal Duplex shows absence of Right QUINCY, but does show enlarged solitary kidney and med renal disease UA with 3+ proteinuria, but no casts BPs remained elevated here but continued to improve since admission, down to 142/68 by the time of discharge. Did require prn doses of IV labetalol on several occasions and po hydralazine prn in addition to changes made below to standing meds Patient with solitary kidney, accelerated hypertension, and worsening renal function today, but creatinine back down to 1.9 on day of discharge Appreciate Nephro consultation -dcd home diltiazem and started amlodipine 10mg daily -increased dose of carvedilol 25mg po bid -With worsening renal function, STOPPED lisinopril 40mg po daily -continue lasix 20mg daily -Added clonidine 0.1 mg p.o. twice daily as per nephrology recommendation -Initially held venlafaxine but given significant anxiety, will restart to prevent withdrawal- doubt that this medication at this low dosage is contributing to her elevated BP and also has been on this for years -advised to not take any NSAIDs and to quit smoking -of note, did receive 1 dose of IV Solu Medrol in ER which may also be contributing -checking plasma metanephrines-pending at time of discharge -continue to closely watch BPs as an outpt (2) Stage III chronic kidney disease: With acute renal insufficiency in the setting of CKD stage III Patient with history of renal cell carcinoma status post left nephrectomy performed in 2016. She follows with Dr. Jacinto Bonilla. She has stable CKD stage III, baseline creatinine of 1.6, GFR of 30-35. Also with proteinuria mentioned in prior nephrology notes. Patient's blood work obtained on 04/01/2019 raised some concern for worsening renal function. Creatinine at that time was 2.2 and BUN was 36. At this point patient reports normal urine output without dysuri a/hematuria/frothy urine. She presents here with hypertensive urgency which certainly could be affecting her renal function. Renal Duplex neg for stenosis as above Creatinine trended back up to 2.2 here and then returned to 1.9 by day of discharge -Avoid nephrotoxic agents -Renal dosing were appropriate -Monitor intake and output, BUN/creatinine/electrolytes -Discontinued lisinopril, and can continue Lasix -continue good BP control -she was given a Rx on discharge for a BMP for Mon- after discharge with results sent to Nephrology, Cardio, PCP -f/u as outpt with Nephro (3) Proteinuria: Chronic. -Holding lisinopril -Defer treatment to nephrology (4) Arteriosclerotic coronary artery disease: Patient with coronary artery disease s/p LYNDSAY to OM-1 performed on 02/11/19. Presently denies CP. -Continue ASA, Plavix, Carvedilol at increased dosage as above, Atorvastatin -Holding lisinopril (5) Anemia: Chronic. Stable. No active bleeding -Continue to monitor (6) Paroxysmal atrial fibrillation: Continues in NSR. Patient does admit to more frequent palpitations, had some PVCs here on tele -continue Coreg at higher dose -dcd diltiazem as above in favor of amlodipine -not on anticoagulation -f/u with Cardiology as outpt (7) Acquired solitary kidney: s/p nephrectomy as above for RCC (8) Acute sinusitis: recently diagnosed and started on Augmentin as outpt -Continue Augmentin to complete a 10 day course-today day 4 (9) Acute respiratory failure with hypoxia: intermittently requiring O2 at 2LNC, unclear reason but likely with mild acute bronchitis in the setting of undiagnosed COPD as well as hypertensive urgency and perhaps some component of acute on chronic diastolic CHF No effusions or PNA on CXR CT chest with chronic findings and significant emphysematous changes much improved by time of discharge-weaned off O2 and ambulating without dyspnea -gave Rx for albuterol MDI upon discharge -f/u with PCP and consider LAMa or LABA for COPD (10) GERD (gastroesophageal reflux disease): continue PPI (11) Current smoker: Is having significant anxiety with not being able to smoke cigarettes in the hospital -Continue nicotine patch upon discharge -she is going to try to continue to quit after discharge (12) DVT prophylaxis: SCDs Dispo-stable for dc to home Discussed case with Nephrology on day of discharge Total Time Total Time Spent Total Time Spent (In Minutes): 35 min Total Time Includes: Examination of the Patient, Discharge Planning, Medication Reconciliation and Communication With Other Providers (Nephrology) Discharge Plan Discharge Items Patient Disposition: Home - Self-Care Reason For Visit: HYPERTENSIVE URGENCY Discharge Diagnosis: Hypertensive urgency Condition on Discharge: Good Activity: As commented below Lifting: Gradually increase as tolerated Bathing: No limitations Exercise/Sports: Gradually increase as tolerated Driving/Machine Use: No limitations Non-emergency contact: Primary Care Provider, [employer] Call non-emergency contact if: you have any medication questions and your symptoms worsen Follow-up/Referrals: Jacinto Bonilla DO [Physician] - (Please follow up within 1-2 weeks-call for an appointment ) Ankush Leavitt [Primary Care Provider] - (Please call for a follow up appointment within 1-2 weeks ) Babar Toure [Staff Physician] - (Please call for a follow up appointment within 2 weeks ) Diet: Heart Healthy and Low Sodium (2gm) Ambulatory Orders: Basic Metabolic Panel (Routine) Timeframe: 3 Days Location: Determined by Patient Ordered By: Isamar Krishna Attending Provider Instructions: Your blood pressure medications were changed to better control your blood pressure. Please follow the medication list provided very closely. It is important that you NOT TAKE any NSAID medication such as ALeve/Motrin/Advil/ibuprofen/naproxen, etc. as this can raise your blood pressure. You were given a new prescription for Augmentin for your sinus infection and a rescue inhaler to be used as needed for shortness of breath. Please have your blood work checked in 2-3 days to recheck your kidney function. You should follow up with your [employer]ker to further discuss your hospitalization. Your shortness of breath is likely due to a combination of emphysema of the lungs and high blood pressure. You're already on your way to quitting smoking! Please continue to use the Nicotine patches and continue to not smoke. Pending Studies at Discharge: No Stand-Alone Forms: [employer], Smoking Cessation Medications and DC Order Prescriptions: New amoxicillin-pot clavulanate 875-125 mg Tablet 1 tab PO BIDM Qty: 12 RF: 0 nicotine [Nicoderm CQ] 21 mg/24 hr Patch 24 Hour 21 mg transdermal QAM Qty: 14 RF: 1 carvedilol 25 mg Tablet 25 mg PO BID Qty: 60 RF: 0 amlodipine 10 mg tablet 10 mg PO DAILY Qty: 30 RF: 0 clonidine HCl 0.1 mg Tablet 0.1 mg PO BID Qty: 60 RF: 0 acetaminophen [Mapap (acetaminophen)] 325 mg Tablet 650 mg PO Q4H PRN (Reason: pain) Qty: 30 RF: 0 albuterol sulfate 90 mcg/actuation aerosol powdr breath activated 2 puffs INH QID PRN (Reason: shortness of breath or wheezing) Qty: 1 RF: 0 Continued venlafaxine 37.5 mg capsule,extended release 24hr 37.5 mg PO DAILY RF: 0 esomeprazole magnesium 40 mg capsule,delayed release(DR/EC) 40 mg PO DAILY Qty: 30 RF: 0 ergocalciferol (vitamin D2) 50,000 unit capsule 50,000 units PO WEEKLY Qty: 12 RF: 0 furosemide 20 mg tablet 20 mg PO DAILY RF: 0 aspirin [Adult Aspirin Regimen] 81 mg tablet,delayed release (DR/EC) 81 mg PO DAILY RF: 0 clopidogrel 75 mg tablet 75 mg PO DAILY Qty: 30 RF: 2 docusate sodium [Col-Rite] 100 mg capsule 100 mg PO BID RF: 0 potassium chloride 10 mEq tablet extended release 10 meq PO 3XWK RF: 0 Probiotic 20 billion cell Capsule 40 mmu cells PO DAILY RF: 0 Discontinued lisinopril 40 mg tablet 40 mg PO DAILY Qty: 90 RF: 0 carvedilol 12.5 mg tablet 12.5 mg PO BID Qty: 60 RF: 2 amoxicillin 875 mg tablet 875 mg PO BID RF: 0 diltiazem HCl [Cartia XT] 180 mg capsule,extended release 24hr 180 mg PO DAILY RF: 0 Discharge Orders: Discharge Order (Routine); Ordered 04/06/19 Ordered By: Isamar Small Admission Data Admit Date/Time: 04/04/19 15:57 Attending Provider: Isamar Small Admit Provider: Ilana Bradley Primary Care Provider: Ankush Leavitt Other Providers: Ilana Bradley ; Izaiah Celestin. Other Interventions: Discharge Summary Assessment (RN) Last Done: 04/06/19 11:29
[2019-04-08 12:28] LABS: Metanephrine, Plasma 48 pg/mL (<=57); Normetanephrine Plasma 172 pg/mL (<=148); Total Metanephrine Plasma 220 pg/mL (<=205)
== END 2019-04-06 13:51 | disposition home or self-care (01) | DRG 304 ==
LOC: 2S 18:05 → ED 18:05 → SUATTDRO 21:34 → 2S 23:04